=== PATIENT | female | born 1955 | race Caucasian/White ===

== ENCOUNTER → 2018-06-20 | Outpatient (CLI) | payer BC ==
[~2018-06-20] MED LIST: CRESTOR20 MG PO; LISINOPRIL20 MG PO; NORCO 5-325 TA1 EACH PO; PLAVIX 75 MG TA75 M1 PO
--- NOTE | 2018-06-28 16:38 | PAINCON ---
[address] [address] PAIN MANAGEMENT CONSULTATION Name: JACQUIE BAGLEY Room: [facility] EliudNayla#: [id number] Admission: 06/20/18 Attend Phys: Benito Kennedy MD Discharge: Date of : 57 Report #: [id number] THIS REPORT FOR: //name// CC: Herber Kennedy DATE OF SERVICE: 06/20/2018 CHIEF COMPLAINT: Pain in the anterior thigh areas. HISTORY OF PRESENT ILLNESS: The patient is a 63-year-old female who has been referred to the pain clinic. The patient states that she has been having pain and discomfort in the anterior thigh, left and right side. She has a history of vascular problems. She has had peripheral vascular disease and has undergone a right carotid endarterectomy because of the problem. She has had some problems with her lower extremity. She has been seen by vascular surgeon and has had surgery on a number of occasions in the groin areas. As a result of surgery, she has been told by her surgeon that she probably has suffered some nerve damage. Rates her pain as an 8/10. Notes pain and discomfort in the anterior thigh, particularly on the left as well as some on the right. At the end of the day note some pain that radiates down into the front portion of her leg. States that she does not have problems with her back, but has vascular insufficiency. This improved after the surgery, but the result in nerve damage remains. ALLERGIES: No known drug allergies. CURRENT MEDICATIONS: Rosuvastatin 20 mg, lisinopril 20 mg, Plavix 75 mg, hydrocodone 5/325 b.i.d. PAST MEDICAL HISTORY: 1. Peripheral vascular disease, status post right carotid endarterectomy for peripheral artery disease, lower extremity. 2. Hypertension. 3. Hypercholesterolemia. 4. History of hepatitis C. 5. Right TIA. 6. Vascular surgery with stents in the groin and aorta in 05/2017. PAST SURGICAL HISTORY: 1. Hysterectomy in 1987. 2. Carotid endarterectomy in 2010. SOCIAL HISTORY: She works with insurance. She is working at this juncture. REVIEW OF SYSTEMS: Joint pain, easy bleeding. Otherwise, [place] [address] PAIN MANAGEMENT CONSULTATION Name: KEVYNJACQUIE R Room: [facility]#: [id number] Admission: 06/20/18 Attend Phys: Benito Kennedy MD Discharge: Date of : 57 Report #: [id number] LABORATORY DATA: MRI of the lumbar spine dated on 04/27/2018: 1. L3-L4 mild disk height loss, mild disk bulge, mild facet hypertrophy. Very mild left neural foraminal stenosis. Right neural foramen patent. No spinal canal stenosis. 2. L4-L5, minimal lateral bulging disk annulus. Mild facet osteophytes. Very mild neural foraminal stenosis. No spinal stenosis. 3. L5-S1 mild posterior disk height loss, no disk bulge or protrusion. Mild facet osteophytes. No spinal canal or neural foraminal stenosis of the facets. PAIN CLINIC ASSESSMENT/PQRS: 1. History of osteoarthritis. The patient has not been treated for osteoarthritis or rheumatoid arthritis. 2. Height 5 feet 1 inch, weight 105 pounds, BMI is 20. 3. Vital signs: Blood pressure 139/91, heart rate 65, respiratory rate 16, room air saturation 97%, temperature 98.3. 4. Pain in intensity score 3/10. 5. Fall history: The patient has not fallen in the last 3 months. 6. Blood thinner. The patient is on Plavix, has a history of transient ischemic attack. 7. History of hypertension. The patient is being treated for hypertension. 8. Opioid greater than 6 weeks. The patient is receiving opioid medications through her primary physician for about 6 weeks. 9. Risk assessment tool, low for opioid use. 10. Functional assessment tool . 11. Recreational drug use. The patient denies use of recreational drugs. 12. Tobacco: The patient denies use of tobacco. 13. Alcohol: The patient denies use of alcoholic beverages. PHYSICAL EXAMINATION: GENERAL: The patient is a very petite white female, appears her stated age. She is alert and oriented x3. Affect is appropriate. Speech is fluent. HEAD, EYES, EARS, NOSE, AND THROAT: Normocephalic, atraumatic. Extraocular eye muscles intact. Sclerae nonicteric. Mucous membranes are moist. NECK: Without adenopathy or JVD. The patient has a well-healed scar on the right side, status post carotid endarterectomy. Upper extremity muscle strength is judged to be 5/5 for the major muscle groups in the upper extremity. Muscle strength is judged to be 5/5 for the major muscle groups. HEART: Regular rate without murmurs or rales. LUNGS: Clear to auscultation. ABDOMEN: Nontender. EXTREMITIES: Lower extremity muscle strength is judged to be 5/5 for the major muscle groups. The patient is able to walk on her heels. She would walk on her toes. Forward bending to touch her toes, not problematic. Left and right lateral bending, left and right lateral rotation are unremarkable. Anterior and posterior spring tests are negative. Ben signs are negative. Straight leg raises are negative. The patient has some pain and discomfort, which she [facility] [address] [place] [address] PAIN MANAGEMENT CONSULTATION Name: KEVYNJACQUIE R Room: [facility]#: [id number] Admission: 06/20/18 Attend Phys: Benito Kennedy MD Discharge: Date of : 57 Report #: [id number] describes in the right anterior portion of her thigh and approximately L2-L3 dermatomal distribution. This involves the right side as well. There is no clubbing, cyanosis or edema in the lower extremity. IMPRESSION: Chronic pain in the anterior thigh area, status post vascular surgery with probable injury to the nerves after history of vascular surgeries. RECOMMENDATION: The patient states she is taking the gabapentin medication. This made her feel a little bit "yucky." She has also taken tramadol and found this medication caused her ears to pop as well as feel "yucky." She feels that the hydrocodone medication is helpful. She is able to perform activities of daily living without significant impact on her life. We have given her the option to try amitriptyline which can sometimes be helpful with pain, which is of a nerve origin. We have also given her the possibility of trying Gralise, which is a slow release gabapentin type medication, which sometimes when gabapentin is problematic is much better tolerated. She declines that medication at this time. Possibility of Lyrica in the future possibility as well. The patient states that she likes to take the least amount of medication as possible. She would like to continue with the hydrocodone as needed. Usually takes one to two tablets per day. A script for these medications have been written. We would like to thank you for letting us to participate in her care. We hope she continues to improve. <ELECTRONICALLY SIGNED> By: Benito Kennedy MD 06/28/18 1638 [id number]. Jeffrey Kennedy MD /[facility]
== END ==
LOC: M.PC 08:11
DX: M79.651 Pain in right thigh (principal); M79.652 Pain in left thigh; G89.29 Other chronic pain; Z98.62 Peripheral vascular angioplasty status

== ENCOUNTER → 2018-09-07 | Outpatient (CLI) | payer BC ==
--- NOTE | ~2018-09-07 | PAINCON ---
[address] [address] PAIN MANAGEMENT CONSULTATION Name: JACQUIE BAGLEY Room: [facility].#: [id number] Admission: Attend Phys: Benito Kennedy MD Discharge: Date of : 57 Report #: [id number] THIS REPORT FOR: //name// CC: Herber Kennedy DATE OF SERVICE: 09/07/2018 HISTORY: The patient is a 63-year-old female who has been followed in the Pain Clinic. She suffers from anterior thigh and discomfort in the left and right side. She has a history of vascular problems. She has peripheral vascular disease. She has undergone a number of procedures including right carotid endarterectomy. Continues to have some problems with her vascularity. Notes that prolonged sitting, which she feels somewhat decreased in his blood flow can increase pain and discomfort she is experiencing in the groin area. She has been using hydrocodone 5/325 one p.o. daily. Oftentimes, she can "get away with 1-1/2 tablets per day." Notes that at the end of the day, she notes pain and discomfort. Prolonged sitting worsens the pain. Standing somewhat improves her discomfort. She continues to have "nerve damage since the surgeries in the groin area." ALLERGIES: No known drug allergies. CURRENT MEDICATIONS: Rosuvastatin 20 mg, lisinopril 20 mg, Plavix 75 mg, and hydrocodone 5/325 one p.o. b.i.d. PAIN CLINIC ASSESSMENT/PQRS: 1. The patient is not being treated for osteoarthritis or rheumatoid arthritis. 2. Height 5 feet 1 inch, weight 109 pounds, BMI is 21. 3. Vital signs: Blood pressure 140/86, heart rate 78, respiratory rate 16, room air saturation is 98%, and temperature 97.8. 4. Pain score 5-6/10. 5. The patient has not fallen in the last 3 months. 6. Blood thinner. The patient is not on a blood thinning medication. 7. Hypertension. The patient is being treated for hypertension. 8. Opioids greater than 6 weeks. The patient is receiving opioid medication from one source, the Pain Clinic. 9. Risk assessment tool, low for opioid use. 10. Functional assessment tool . 11. Recreational drug use. The patient denies use of recreational drugs. 12. Tobacco: The patient denies use of tobacco. 13. Alcohol: The patient denies use of alcoholic beverages. PHYSICAL EXAMINATION: GENERAL: The patient is a well-developed, well-n[place] [address] PAIN MANAGEMENT CONSULTATION Name: JACQUIE BAGLEY Room: [facility]#: [id number] Admission: Attend Phys: Benito Kennedy MD Discharge: Date of : 57 Report #: [id number] her stated age. She is alert and oriented x 3. Affect is appropriate. Speech is fluent. HEENT: Normocephalic, atraumatic. Extraocular eye muscles intact. Sclerae nonicteric. Mucous membranes are moist. NECK: Without adenopathy or JVD. The patient is status post right carotid endarterectomy. LUNGS: Clear to auscultation. ABDOMEN: Nontender. Bowel sounds present. EXTREMITIES: Lower extremity muscle strength is judged to be 5/5 for the major muscle groups in the upper extremity. Upper extremity muscle strength 5/5 in the major muscle groups in the upper extremity. The patient without significant scoliosis, kyphosis or lordosis. Notes that when she sits and leans forward this can cause worsening of pain after prolonged sitting. Notes that this improves when the patient stands up. She feels that this is secondary to increased blood flow down into her leg areas. IMPRESSION: 1. Chronic pain in the anterior - status post peripheral vascular disease. 2. Some constituents of neurovascular discomfort in the anterior portion of her thigh. RECOMMENDATIONS: We discussed treatment options with the patient. The patient will continue with hydrocodone 5/325 one p.o. b.i.d. She finds this is helpful. Takes one in the morning and one in the afternoon and evening when she gets home. Hope that enables her to have a more comfortable lifestyle. Has had no complication from the medications. She is aware that opioid medications can be problematic. We saw her initially in June. She called to get an appointment in [place] at [facility]. Unfortunately, we were closed for a week or two. She was unable to get the medication. Continue to have pain and discomfort and followed up with her doctor, Dr. Marino. States that he gave her 30 tablets. She has returned today for renewal of her medications. A script for her medications has been written. She will follow up in the future as needed. We would like to thank you for letting us participate in her care. We hope she continues to improve. By: [id number]. Jeffrey Kennedy MD /kris
== END ==
LOC: M.PC 09:10
DX: M79.651 Pain in right thigh (principal); M79.652 Pain in left thigh; G89.29 Other chronic pain; I73.9 Peripheral vascular disease, unspecified

== ENCOUNTER → 2018-10-05 | Outpatient (CLI) | payer BC ==
--- NOTE | ~2018-10-05 | PAINCON ---
[address] [address] PAIN MANAGEMENT CONSULTATION Name: KEVYNJACQUIE R Room: [facility]#: [id number] Admission: 10/05/18 Attend Phys: Benito Kennedy MD Discharge: Date of : 57 Report #: [id number] THIS REPORT FOR: //name// CC: Herber Kennedy DATE OF SERVICE: 10/05/2018 CHIEF COMPLAINT: Here for medication renewal. HISTORY: The patient is a 63-year-old female who has been followed in the pain clinic because of chronic pain. She suffers from peripheral vascular disease. She has undergone a number of surgeries. They include the carotid area as well as Vascular Surgery in the groin areas. Notes that she continues to have pain in the groin and in the top of her legs. Pain is worse with activity. Left side is more problematic than the right. Pain can be exacerbated by sitting. Rates her pain as a 5-6/10. Feels that her medications of [place] are helpful. She has been told that she has some nerve damage associated with her surgeries, which she has had in the groin area. ALLERGIES: No known drug allergies. MEDICATIONS: Rosuvastatin 20 mg, lisinopril 20 mg, Plavix 75 mg, hydrocodone 5/325 1 p.o. b.i.d. PAIN CLINIC ASSESSMENT AND PQRS: 1. The patient is not being treated for osteoarthritis or rheumatoid arthritis. 2. Height 5 feet 1 inch, weight 109 pounds, BMI is 20.9. 3. Vital signs: Blood pressure 135/88, heart rate 69, respiratory rate 16, room air saturation 99%, and temperature 97.6. 4. Pain intensity 5-6/10. 5. Fall history: The patient has not fallen in the last 3 months. 6. Blood thinner. The patient is not on a blood thinning medication, but she is on Plavix. 7. Hypertension. The patient is being treated for hypertension. 8. Opioids greater than 6 weeks. The patient has received her medication from one source, the pain clinic. 9. Risk assessment tool, low for opioid use. 10. Functional assessment tool . 11. Recreational drug use. The patient denies use of recreational drugs. 12. Tobacco: The patient denies use of tobacco. 13. Alcohol: The patient denies alcoholic beverages. PHYSICAL EXAMINATION: GENERAL: The patient is a well-developed, well-nourished white female[place] [address] PAIN MANAGEMENT CONSULTATION Name: JACQUIE BAGLEY Room: [facility]#: [id number] Admission: 10/05/18 Attend Phys: Benito Kennedy MD Discharge: Date of : 57 Report #: [id number] HEENT: Normocephalic, atraumatic. Extraocular eye muscles intact. Sclerae nonicteric. Mucous membranes are moist. NECK: Without adenopathy or JVD. The patient is status post right carotid endarterectomy. LUNGS: Clear to auscultation without rhonchi or rales. ABDOMEN: Nontender. Bowel sounds present. EXTREMITIES: Upper extremity muscle strength is judged to be 5/5 for the major muscle groups in the upper extremity. Lower extremity muscle strength generally 5-/5 for the lower extremity. The patient without significant scoliosis, kyphosis, or lordosis. Has pain and discomfort in the groin area. Forward leaning exacerbates and worsens her pain. Standing decreases the pain and discomfort. IMPRESSION: 1. Chronic pain in the anterior thigh area secondary to peripheral vascular disease. 2. Some discomfort in the neuro area as a result of past surgeries. RECOMMENDATIONS: We discussed treatment options with the patient. We will continue with her current medications. A script for her medications of hydrocodone have been rewritten. The patient will call us if she has any problems with her medications. Overall, she feels that things are going reasonably well. A script for the hydrocodone has been written. She will continue with her Plavix. She will continue her activities as tolerated. We would like to thank you for letting us participate in her care. We hope she continues to improve. By: [id number]. Jeffrey Kennedy MD /nt
== END ==
LOC: M.PC 05:10
DX: I73.9 Peripheral vascular disease, unspecified (principal); G89.29 Other chronic pain; Z79.899 Other long term (current) drug therapy

== ENCOUNTER → 2018-11-02 | Outpatient (CLI) | payer BC ==
--- NOTE | ~2018-11-02 | PAINCON ---
[facility] [address] [place] [address] PAIN MANAGEMENT CONSULTATION Name: JACQUIE BAGLEY [id number] Admission: 11/02/18 Attend Phys: Benito Kennedy MD Discharge: Date of : 57 Report #: [id number] THIS REPORT FOR: //name// CC: Herber Kennedy DATE OF SERVICE: 11/02/2018 FOLLOWUP COMPLAINT: Here for medication renewal. FOLLOWUP HISTORY: The patient is a 63-year-old female. She has been referred to the pain clinic for evaluation of chronic pain involving her legs. She suffers from peripheral neuropathy. She has had a number of surgeries. She has had carotid surgery. She has had vascular surgery in her groin area. Continues to have pain and discomfort in her legs, particularly if she sits for too long. Less pain and discomfort when she is standing. Has returned today for renewal of her medications. Feels that the medications are working reasonably well. She has had no complications from their use. Rates her pain as a 4/10. Notes that since the cold weather has subsided, pain is less. She is hoping that it will continue to be less problematic in the spring. She finds that hydrocodone 5/325 one p.o. b.i.d. were efficacious and has returned for the renewal of this medication. She is taking it as prescribed. ALLERGIES: No known drug allergies. MEDICATIONS: Rosuvastatin 20 mg, lisinopril 20 mg, Plavix 75 mg, hydrocodone 5/325 one p.o. b.i.d. PAIN CLINIC ASSESSMENT AND PQRS: 1. The patient is not being treated for osteoarthritis or rheumatoid arthritis. 2. Height 5 feet 1 inch, weight 110 pounds, BMI is 20.8. 3. Vital signs: Blood pressure 135/79, heart rate 69, respiratory rate 16, room air saturation 97%. Temperature was 98.1. 4. Pain intensity 10. 5. Fall history: The patient has not fallen in the last 3 months. 6. Blood thinner. The patient is not on a blood thinning medication. She is taking Plavix. 7. Hypertension. The patient is being treated for hypertension. 8. Opioids greater than 6 weeks. The patient has received medication from one source, the pain clinic. 9. Risk assessment tool, low for opioid use. 10. Functional assessment tool . 11. Recreational drug use. The patient denies use of recreational drugs. 12. Tobacco: The patient denies use of tobacco. 13. Alcohol: The patient [place] [address] PAIN MANAGEMENT CONSULTATION Name: JACQUIE BAGLEY Room: [facility]#: [id number] Admission: 11/02/18 Attend Phys: Benito Kennedy MD Discharge: Date of : 57 Report #: [id number] PHYSICAL EXAMINATION: GENERAL: The patient is well-developed, well-nourished white female. Appeared small in stature. HEENT: Normocephalic, atraumatic. Extraocular eye muscles intact. Sclerae nonicteric. Mucous membranes are moist. NECK: Without adenopathy or JVD. LUNGS: Clear to auscultation without rhonchi or rales. ABDOMEN: Nontender. Bowel sounds present. EXTREMITIES: Upper extremity muscle strength judged to be 5/5 for the major muscle groups in the upper extremity. Lower extremity 5-/5 for the major muscle groups in the lower extremity. The patient is without scoliosis, kyphosis or lordosis. The patient has pain and discomfort in the groin areas. Notes that forward leaning exacerbates her pain. Decreases blood flow and causes more discomfort. IMPRESSION: 1. Chronic pain in the thigh area, status post peripheral vascular surgery. 2. Peripheral vascular disease. RECOMMENDATIONS: We discussed treatment options with the patient. Overall, she feels that things are going reasonably well. We will continue with her medications. A script for renewal of her medication of hydrocodone 5/325 one p.o. b.i.d. has been written. She will call us if she has any concerns. We would like to thank you for letting us participate in her care. We hope she continues to improve. By: [id number]. Jeffrey Kennedy MD /EREN
== END ==
LOC: M.PC 04:46
DX: M79.651 Pain in right thigh (principal); M79.652 Pain in left thigh; I73.9 Peripheral vascular disease, unspecified; Z79.899 Other long term (current) drug therapy

== ENCOUNTER → 2018-11-30 | Outpatient (CLI) | payer OTHER ==
[~2018-11-30] MED LIST changes: +ASPIR 8181 MG PO
--- NOTE | 2018-12-01 13:10 | PAINCON ---
[address] [address] PAIN MANAGEMENT CONSULTATION Name: JACQUIE BAGLEY Room: [facility].#: [id number] Admission: 11/30/18 Attend Phys: Benito Kennedy MD Discharge: Date of : 57 Report #: [id number] THIS REPORT FOR: //name// CC: Herber Kennedy DATE OF SERVICE: 11/30/2018 CHIEF COMPLAINT: Chronic leg pain. HISTORY: The patient is a 63-year-old female who has been followed in the pain clinic because of chronic pain. As you recall, she has had some problems with peripheral artery disease. She has had surgery in the area of the groin left and right. Because of the significance of the stenotic area in her right leg. The left iliac was shunted to the right side. Continues to have pain and discomfort. Sitting which caused a bending and restriction of blood flow causes more pain and discomfort. She has less pain and discomfort when she is standing. She has been told that she has some nerve damage. Still has some pain and discomfort in her right as well as the left leg. The right leg has been more problematic. States that she had recent followup with her vascular surgeon, was told that the vasculature and blood flow on the right side was reasonably good. She feels that her medications of hydrocodone are helpful. Has some blockage still in her legs. Rates her pain score is a 10/22/2018. Hydrocodone medication is quite helpful. Note activity, cold, walking, sitting, standing can be problematic. The rest is beneficial. Has stopped taking her blood thinning medication. States that this medication made her feel a little bit dizzy. When she turns her head noted some feelings of instability. Since she has stopped taking the medication, she feels that things have stabilized. ALLERGIES: No known drug allergies. CURRENT MEDICATIONS: Rosuvastatin 20 mg, lisinopril 20 mg, Plavix 75 mg was used in the past, hydrocodone 5/325. The patient has stopped taking the Plavix. Does continue with aspirin 81 mg daily. PAIN CLINIC ASSESSMENT/PQRS: 1. The patient is not being treated for osteoarthritis or rheumatoid arthritis. 2. Height 5 feet 1 inch, weight 109 pounds, BMI is 20, respiratory rate 16, room air saturation is 97%, blood pressure 142/96, and temperature 97.8. 3. Pain intensity 10/22. 4. Fall history: The patient has not fallen in the last 3 months. 5. Blood thinner. The patient is not on blood thinning medication. 6. Hypertension. The patient is being treated for hypertension. 7. Opiates greater than 6 weeks. The patient is taking medication from [facility]. 8. Risk assessment too [place] [address] PAIN MANAGEMENT CONSULTATION Name: JACQUIE BAGLEY Room: [facility]#: [id number] Admission: 11/30/18 Attend Phys: Benito Kennedy MD Discharge: Date of : 57 Report #: [id number] 9. Functional assessment . 10. Recreational drug use. The patient denies use of recreational drugs. 11. Tobacco: The patient smoked from age 17 to about age 41. Does not smoke at this juncture. 11. Alcohol: The patient denies use of alcoholic beverages. PHYSICAL EXAMINATION: GENERAL: The patient is a well-developed, well-nourished white female. Appears of her appears her stated age. She is small in stature. HEENT: Normocephalic, atraumatic. Extraocular eye muscles intact. Sclerae nonicteric. Mucous membranes are moist. NECK: Without adenopathy or JVD. ABDOMEN: Nontender. EXTREMITIES: Upper extremity muscle strain judged to be 5/5 for the major muscle groups in the upper extremity. Lower extremity muscle strength 5-/5 for the major muscle than lower extremity. Has some pain and discomfort in the anterior portion of her leg on the right side and some in the left side as well. The patient is without scoliosis, kyphosis or lordosis. Has some discomfort in the groin areas. Forward leaning causes exacerbation of her pain and this is probably secondary to decreased blood flow. IMPRESSION: 1. Chronic pain in the thighs, status post peripheral vascular disease. 2. Hypertension. 3. Peripheral vascular disease. RECOMMENDATIONS: We discussed treatment options with the patient. At this juncture, we will continue with her medications of hydrocodone 5/1 p.o. b.i.d. The patient will continue to take her medications. She will call us if she has any concerns. Overall, she feels that things are going reasonably well. She is somewhat satisfied that her vascular stability remains intact. Script for her medications of hydrocodone 5/325 one p.o. b.i.d. has been rewritten. <ELECTRONICALLY SIGNED> By: Benito Kennedy MD 12/01/18 1310 0920 [id number]. Jeffrey Kennedy MD /nt
== END ==
LOC: M.PC 05:12
DX: G89.29 Other chronic pain (principal); M79.652 Pain in left thigh; M79.651 Pain in right thigh; I10 Essential (primary) hypertension; I73.9 Peripheral vascular disease, unspecified; Z79.899 Other long term (current) drug therapy; Z79.82 Long term (current) use of aspirin; Z79.891 Long term (current) use of opiate analgesic; Z87.891 Personal history of nicotine dependence

== ENCOUNTER → 2018-12-28 | Outpatient (CLI) | payer OTHER ==
--- NOTE | 2019-01-11 01:32 | PAINCON ---
[address] [address] PAIN MANAGEMENT CONSULTATION Name: KEVYNJACQUIE CRANE Room: [facility].#: [id number] Admission: 12/28/18 Attend Phys: Benito Kennedy MD Discharge: Date of : 57 Report #: [id number] THIS REPORT FOR: //name// CC: Herber Kennedy DATE OF SERVICE: 12/28/2018 CHIEF COMPLAINT: Here for medication renewal and chronic leg pain. HISTORY: The patient is a 63-year-old female who has been followed in the pain clinic. As you may recall, she has peripheral vascular disease. Does have pain and discomfort in the groin area. He has had vascular compromise. She has undergone iliac shots from the left to the right side. Continues to have some pain and discomfort. This pain can be more problematic when she sits. This causes an embarrassment flow to the lower extremities. She feels that use of her medications at this juncture are helpful. She finds hydrocodone reasonably effective. She has noticed an increase in her pain due to lots of walking. She did go to [place]. During that week, she noticed more discomfort because of the walking. Has had some increased pain in her low back area and has had the bilateral groin discomfort. Rates it as 3/10. Has found that the hydrocodone medication continues to be helpful. Notes that walking, sitting, standing can be more problematic. Notes that rest and use of her medications are beneficial and she would like to have her medications renewed. She has had no complications with the medications so far. ALLERGIES: No known drug allergies. CURRENT MEDICATIONS: Rosuvastatin 20 mg, lisinopril 20 mg, Plavix 75 mg as it has been used in the past, but the patient has stopped this medication. Hydrocodone 5/325 b.i.d., aspirin 81 mg daily. PAIN CLINIC ASSESSMENT AND PQRS: 1. The patient is not being treated for osteoarthritis or rheumatoid arthritis. 2. Height 5 feet 1 inch, weight is 110 pounds, BMI is 21. 3. Vital signs: Blood pressure 114/82, heart rate 70, respiratory rate 16, room air saturation 97%, temperature 98.1. 4. Pain intensity 3-4/10. 5. Fall history: The patient has not fallen in the last 3 months. 6. Blood thinner: The patient is not on a blood thinning medication. 7. Hypertension. The patient is being treated for hypertension. 8. Opioids greater than 6 weeks. The patient is not taking medications except for that which she received from the pain clinic. 9. Risk assessment tool, low for opioid use. 10. Functional assessment tool . 11. Recreational drug use. The patient [place] [address] PAIN MANAGEMENT CONSULTATION Name: JACQUIE BAGLEY [facility]#: [id number] Admission: 12/28/18 Attend Phys: Benito Kennedy MD Discharge: Date of : 57 Report #: [id number] 12. Tobacco: The patient has smoked in the past. Smoked from age 17 to age 41. Does not smoke at this juncture. 13. Alcohol: The patient denies use of alcoholic beverages. PHYSICAL EXAMINATION: GENERAL: The patient is a well-developed, well-nourished white female. Appears her stated age. She is small in stature. HEENT: Normocephalic, atraumatic. Extraocular eye muscles intact. Sclerae nonicteric. Mucous membranes are moist. NECK: Without adenopathy or JVD. ABDOMEN: Nontender. Bowel sounds present. EXTREMITIES: Upper extremity muscle strength is judged to be 5-/5 for the major muscle groups in the upper extremity. Lower extremity muscle strength 5-/5 for the major muscle groups in lower extremity. The patient has some discomfort in anterior portion of her leg as well as down in the right side. The patient is without scoliosis, kyphosis, or lordosis. Some discomfort in the area of the groins. Forward leaning cause some exacerbation of her pain most likely secondary to decreased blood flow. IMPRESSION: 1. Chronic pain in the thighs, status post peripheral vascular disease. 2. Hypertension. 3. Peripheral vascular disease. RECOMMENDATIONS: We discussed treatment options with the patient. At this juncture, she feels her medications are working reasonably well. We will continue with her medications. She is aware that opioid medications can be helpful that they can lose their effectiveness over time secondary to development of tolerance. She feels medications are helpful. She would like to continue with their use. She is using 5 mg 1 p.o. b.i.d. A script for her medication has been written. She will call us if she has any concerns. We would like to thank you for letting us participate in her care. We hope she continues to improve. <ELECTRONICALLY SIGNED> By: Benito Kennedy MD 01/11/19 0132 [id number]. Jeffrey Kennedy MD /nt
== END ==
LOC: M.PC 04:58
DX: M79.651 Pain in right thigh (principal); M79.652 Pain in left thigh; G89.29 Other chronic pain; I10 Essential (primary) hypertension; I73.9 Peripheral vascular disease, unspecified; Z79.899 Other long term (current) drug therapy

== ENCOUNTER → 2019-01-18 | Outpatient (CLI) | payer OTHER ==
[~2019-01-18] MED LIST changes: +HYDROCODON-ACE1 EAC7 PO
--- NOTE | ~2019-01-18 | PAINCON ---
[address] [address] PAIN MANAGEMENT CONSULTATION Name: JACQUIE BAGLEY Room: [facility].#: [id number] Admission: 01/18/19 Attend Phys: Benito Kennedy MD Discharge: Date of : 57 Report #: [id number] THIS REPORT FOR: //name// CC: Herber Kennedy DATE OF SERVICE: 01/18/2019 CHIEF COMPLAINT: Pain in the legs. HISTORY: The patient is a 63-year-old female who has been followed in the pain clinic because of peripheral neuropathy she has leg pain. She has undergone surgeries in the groin area. There is compromised of the vascular flow in these areas. Notes that if she this can decrease the flow that causes increased pain and discomfort. She finds that use of hydrocodone has been effective in improving her level of comfort. She is taking her medications as prescribed. She is having no complications with them. She rates her pain as a 4/10 today. She has used CBD oil. She feels that medication may be improving some of her pain and discomfort. She rates her about 50% improved with her current medical regimen. Notes that cold temperatures, walking, sitting, and standing can exacerbate her discomfort. Rest and use of medications, is helpful. She is having no complications with her medications. She would like to continue their use and return to the pain clinic for renewal. ALLERGIES: No known drug allergies. CURRENT MEDICATIONS: Rosuvastatin 20 mg, lisinopril 20 mg, Plavix 75 mg. The patient stopped using Plavix. Hydrocodone 5/325 one p.o. b.i.d., aspirin 81 mg. PAIN CLINIC ASSESSMENT/PQRS: 1. The patient is not being treated for osteoarthritis or rheumatoid arthritis. 2. Height 5 feet 1 inch, weight 110 pounds, BMI is 20.9. 3. Vital signs: Blood pressure 159/95, heart rate 72, respiratory rate 16, room air saturation 99%, temperature 97.8. 4. Pain intensity: 4/10. 5. Fall history: The patient has not fallen in the last 3 months. 6. Blood thinner. The patient is not on a blood thinning medication. 7. Hypertension. The patient is being treated for hypertension. 8. Opioids greater than 6 weeks. The patient receives her medications from 1 source the pain clinic. 9. Risk assessment tool, low for opioid use. 10. Functional assessment tool . 11. Recreational drug use. The patient denies use of recreational drugs. 12. Tobacco: The patient has smoked in the past and smokes from age 17 to age 41. She is [place] [address] PAIN MANAGEMENT CONSULTATION Name: JACQUIE BAGLEY Room: [facility]#: [id number] Admission: 01/18/19 Attend Phys: Benito Kennedy MD Discharge: Date of : 57 Report #: [id number] 13. Alcohol: The patient denies use of alcoholic beverages. PHYSICAL EXAMINATION: GENERAL: The patient is a well-developed, well-nourished white female. Appears her stated age. She is alert and oriented x 3. Affect is appropriate. Speech is fluent. HEENT: Normocephalic, atraumatic. Extraocular eye muscles intact. Sclerae nonicteric. Mucous membranes are moist. NECK: Without adenopathy or JVD. ABDOMEN: Nontender. Bowel sounds present. EXTREMITIES: Upper extremity muscle strength is judged to be 5-/5 for the major muscle groups in the upper extremity. Lower extremity muscle strength 5-/5 for the major muscle groups in the lower extremity. The patient has some discomfort when she sits. This causes some of the stents. The patient is without lordosis call us lordosis, kyphosis, or scoliosis. IMPRESSION: 1. Pain in the thighs, status post peripheral vascular disease. 2. Hypertension. 3. Peripheral vascular disease. RECOMMENDATIONS: We discussed treatment options with the patient. At this juncture, we will continue with hydrocodone. She finds this medication is helpful. She does not have any problems. She is aware that opioid medications can be problematic. We discussed the problems with opioid medications. Some the patients can develop dependence on these medications. The patient does not have any sign and dependency. We also discussed the possibility of development of tolerance. At that rate, the patient will get less benefit from the medication and require a higher dose. She is at a very low dose. We will continue with her medications. Hopefully, she is able to maintain her level of activity. She is able to stay gainfully employed. She will call us if she has any concerns. We would like to thank you for letting us participate in her care. We hope she continues to improve. By: [id number]. Jeffrey Kennedy MD /EREN
== END ==
LOC: M.PC 05:32
DX: I73.9 Peripheral vascular disease, unspecified (principal); G62.9 Polyneuropathy, unspecified; I10 Essential (primary) hypertension; M79.661 Pain in right lower leg; M79.662 Pain in left lower leg; Z79.82 Long term (current) use of aspirin; Z79.899 Other long term (current) drug therapy

== ENCOUNTER → 2019-02-22 | Outpatient (CLI) | payer OTHER ==
--- NOTE | ~2019-02-22 | PAINCON ---
[address] [address] PAIN MANAGEMENT CONSULTATION Name: JACQUIE BAGLEY [id number] Admission: 02/22/19 Attend Phys: Benito Kennedy MD Discharge: Date of : 57 Report #: [id number] THIS REPORT FOR: //name// CC: Herber Kennedy DATE OF SERVICE: 02/22/2019 CHIEF COMPLAINT: Chronic leg pain. HISTORY: The patient is a 64-year-old female who has been followed in the pain clinic. Cause of peripheral neuropathy. She continues to have pain. She has undergone surgeries for vascular insufficiency. Because of the surgeries she has had increasing pain in the legs. Notes that when she is sitting, the legs are fit, but she has more increasing pain. Standing is less problematic. She finds that use of hydrocodone has been efficacious. She is having no complications with that. Feels that her pain improves with the use of the medication. She feels that her pain is worse in the evening. Notes activity, walking, sitting, standing can precipitate more discomfort, has had no complication with her medications. She feels that her pain is about 50% improved with use of medications. She has returned today with hopes of renewing her medicines. She is taking as prescribed. She is having no real complications. ALLERGIES: No known drug allergies. CURRENT MEDICATIONS: Rosuvastatin 20 mg, lisinopril 20 mg, Plavix 75 mg. The patient has stopped taking this medication. Hydrocodone 5/325 one p.o. b.i.d., aspirin 81 mg. PAIN CLINIC ASSESSMENT/PQRS: 1. The patient is not being treated for osteoarthritis or rheumatoid arthritis. 2. Height 5 feet 1 inch, weight 110 pounds, BMI is 20, room air saturation is 98%, temperature 98.4, blood pressure 120/69, heart rate 58. 3. Pain intensity 2/10. 4. Fall history: The patient has not fallen in the last 3 months. 5. Low Blood thinner. The patient is not on a blood thinning medication. 6. Hypertension. The patient is being treated for hypertension. 7. Opioids greater than 6 weeks. The patient receives medications from one source, the pain clinic. 8. Risk assessment tool for opioid use. 9. Functional assessment tool . 10. Recreational drug use. The patient denies. 11. Recreational drugs. The patient is not using recreational drugs. 12. Tobacco: The patient has smoked in the past and has smoked from age 6. She has stopped smoking and does not [place] [address] PAIN MANAGEMENT CONSULTATION Name: JACQUIE BAGLEY Room: [facility]#: [id number] Admission: 02/22/19 Attend Phys: Benito Kennedy MD Discharge: Date of : 57 Report #: [id number] 13. Alcohol: The patient denies use of alcoholic beverages. PHYSICAL EXAMINATION: GENERAL: The patient is a well-developed, well-nourished white female. Appears her stated age. She is alert and oriented x 3. Her affect is appropriate. Speech is slow. HEAD, EYES, EARS, NOSE, AND THROAT: Normocephalic, atraumatic. Extraocular eye muscles intact. NECK: Without adenopathy or JVD. ABDOMEN: Nontender. Bowel sounds present. EXTREMITIES: Upper extremity muscle strength is judged to be 5/5 for the major muscle groups in the upper extremity. Lower extremity strength is 5/5. The patient notes some increased pain and discomfort if she sits for a prolonged period of time. The patient is without significant lordosis, kyphosis or scoliosis. IMPRESSION: 1. Chronic pain secondary to peripheral vascular disease. 2. Hypertension. RECOMMENDATIONS: We discussed treatment options with the patient. At this juncture, she feels her medications are helpful. She does not have any problems with them. We had a discussion regarding use of opioids. They can be helpful initially. This may become less effective because of development of tolerance. The patient is also aware that some patients have problems with the medication and can developed dependency. She feels like she is having problems with it. She is active. She does drive quite a bit. Yesterday, she drove from [place] and has noted some increased pain, particularly when she is sitting. She will follow up in the near future. We would like to thank you for letting us to participate in her care. A script for her medications of hydrocodone 5 one p.o. b.i.d. has been written. By: [id number]. Jeffrey Kennedy MD /EREN
== END ==
LOC: M.PC 05:11
DX: I73.9 Peripheral vascular disease, unspecified (principal); G89.29 Other chronic pain; I10 Essential (primary) hypertension; Z79.899 Other long term (current) drug therapy; Z79.891 Long term (current) use of opiate analgesic; Z87.891 Personal history of nicotine dependence

== ENCOUNTER → 2019-03-20 | Outpatient (CLI) | payer OTHER | LOC: M.PC 05:01 | DX: I73.9 Peripheral vascular disease, unspecified (principal); I10 Essential (primary) hypertension; E78.00 Pure hypercholesterolemia, unspecified; Z79.899 Other long term (current) drug therapy ==

== ENCOUNTER → 2019-04-19 | Outpatient (CLI) | payer OTHER ==
--- NOTE | 2019-04-23 11:25 | PAINCON ---
[facility] [address] [place] [address] PAIN MANAGEMENT CONSULTATION Name: JACQUIE BAGLEY [id number] Admission: 04/19/19 Attend Phys: Benito Kennedy MD Discharge: Date of : 57 Report #: [id number] THIS REPORT FOR: //name// CC: Herber Kennedy DATE OF SERVICE: 04/19/2019 FOLLOWUP HISTORY: The patient is a 64-year-old female who has been followed in the pain clinic. She has chronic pain involving her back and lower legs. She does have peripheral vascular disease. She has had vascular surgery in both the left and right leg with involvement of the iliacs. Overall, things are going reasonably well. She feels that her medications of hydrocodone enables her to have a more comfortable existence. She is taking the medication as prescribed. She has had no complications. She feels that the medication remains helpful and has some discomfort in the low back area as well. She has increased discomfort with cold temperatures, walking, sitting, standing, and medications and rest decrease her discomfort. ALLERGIES: No known drug allergies. CURRENT MEDICATIONS: Rosuvastatin 20 mg, lisinopril 20 mg, and Plavix. This was used in the past, but the patient is not taking it at this juncture. Hydrocodone 5/325 one p.o. b.i.d., and aspirin 81 mg. PAIN CLINIC ASSESSMENT AND PQRS: 1. The patient is not being treated for osteoarthritis or rheumatoid arthritis. 2. Height 5 feet 1 inch, weight 112 pounds, BMI is 20.9. 3. Vital signs: Blood pressure 134/83, heart rate 61, respiratory rate 16, room air saturation 95%, and temperature 97.5. 4. Pain intensity 1-2 out of 10. 5. Fall history: The patient has not fallen in the last 3 months. 6. Blood thinner. The patient is not on a blood thinning medication. 7. Plavix. The patient has used in the past, but is not using it now. 8. Hypertension. The patient is being treated for hypertension. 9. Opioids greater than 6 weeks. The patient received medication from one source the pain clinic. 10. Risk assessment tool, low for opioid use. 11. Functional assessment tool, . 12. Recreational drug use. The patient denies use of recreational drugs. 13. Tobacco: The patient smoked in the past. Smoked for about 10 years. She has not smoked, does not smoke at this juncture. 14. Alcohol. The patient denies use of alcoholic beverages. PHYSICAL EXAMINATION: GENERAL: The patient is a well-developed, well-[place] [address] PAIN MANAGEMENT CONSULTATION Name: JACQUIE BAGLEY Room: [facility]#: [id number] Admission: 04/19/19 Attend Phys: Benito Kennedy MD Discharge: Date of : 57 Report #: [id number] her stated age. She is alert and oriented x 3. Her affect is appropriate. Speech is fluent. HEENT: Normocephalic, atraumatic. Extraocular eye muscles intact. NECK: Without adenopathy or JVD. HEART: Regular rate. ABDOMEN: Nontender. EXTREMITIES: Upper extremity muscle strength judged to be 5/5 for the major muscle groups. Lower extremity muscle strength is judged to be 5/5 for the major muscle groups in the lower extremity. The patient is without significant scoliosis, kyphosis or lordosis. IMPRESSION: 1. Pain in the thighs - status post peripheral vascular surgeries. 2. Hypertension. 3. Peripheral vascular disease. 4. Hypercholesterolemia. RECOMMENDATIONS: We discussed treatment options with the patient. At this juncture, she feels that the hydrocodone medication is helpful. She is able to remain gainfully employed. She does quite a bit of traveling and finds this medication makes travelling more palatable. She is aware that opioid medications can become less effective over time due to tolerance. We have discussed that 70,000 people last year as a result of overdosing. The patient feels medications are working well. Keeps them in a guarded area. She would like to continue with the medication to help continue with her pain relief. We will continue with use of the opioid medications in a complex medical management situation to help control the pain. <ELECTRONICALLY SIGNED> By: Benito Kennedy MD 04/23/19 1125 0926 1222N. Jeffrey Kennedy MD /nt
== END ==
LOC: M.PC 04-17 08:50
DX: M79.652 Pain in left thigh (principal); M79.651 Pain in right thigh; I10 Essential (primary) hypertension; I73.9 Peripheral vascular disease, unspecified; E78.00 Pure hypercholesterolemia, unspecified

== ENCOUNTER → 2019-05-17 | Outpatient (CLI) | payer OTHER ==
[~2019-05-17] MED LIST changes: +multivitamin PO
--- NOTE | 2019-06-06 09:09 | PAINCON ---
[facility] [address] [place] [address] PAIN MANAGEMENT CONSULTATION Name: JACQUIE BAGLEY Room: [facility]#: [id number] Admission: 05/17/19 Attend Phys: Benito Kennedy MD Discharge: Date of : 57 Report #: [id number] THIS REPORT FOR: //name// CC: Herber Kennedy DATE OF SERVICE: 05/17/2019 CHIEF COMPLAINT: Here for medication renewal. HISTORY: The patient is a 64-year-old female who has been followed in the pain clinic. Continues to have pain and discomfort involving her lower legs. Notes some increased pain and discomfort over the last month. She has continued to stay active. Feels that the medications are beneficial and enable her to have a more comfortable life, doing activities of daily living. Continues to have pain that radiates down into the groin and into her legs bilaterally. She feels that it might have been worse over the last month because of the change in the weather pattern. She rates her pain as a 6/10 at this point. Notes that generally 50% improvement in her pain. Notes that walking, sitting and standing can be more problematic. ALLERGIES: No known drug allergies. CURRENT MEDICATIONS: Rosuvastatin 20 mg, lisinopril 20 mg, hydrocodone 5/325 one p.o. b.i.d., and aspirin 81 mg. PAIN CLINIC ASSESSMENT AND PQRS: 1. The patient is not being treated for osteoarthritis or rheumatoid arthritis. 2. Vital Signs: Height 5 feet 1 inch, weight 110 pounds, BMI is 20, respiratory rate is 16, blood pressure 142/84, heart rate 61, temperature 97.9, and saturation 97%. 3. Pain intensity 01/22. 4. Fall history: The patient has not fallen in the last 3 months. 5. Blood thinner. The patient is not on a blood thinning medication, Plavix has been used in the past, not now. 6. Hypertension. The patient is being treated for hypertension. 7. Opioids greater than 6 weeks. The patient receives medication from [facility]. 8. Risk assessment tool, low for opioid use. 9. Functional assessment tool . 10. Recreational drug use. The patient denies use of recreational drugs. 11. Tobacco: The patient smokes in the past. Has smoked for about the past 10 years. She is not smoking at this juncture. 12. Alcohol. The patient denies use of alcoholic beverages. PHYSICAL EXAMINATION: [address] [place] [address] PAIN MANAGEMENT CONSULTATION Name: JACQUIE BAGLEY Room: [facility]#: [id number] Admission: 05/17/19 Attend Phys: Benito Kennedy MD Discharge: Date of : 57 Report #: [id number] GENERAL: The patient is a well-developed, well-nourished white female. Appears her stated age. She is alert and oriented x 3. Her affect is appropriate. Speech is fluent. HEENT: Normocephalic, atraumatic. Extraocular eye muscles intact. Sclerae nonicteric. Mucous membranes are moist. NECK: Without adenopathy or JVD. HEART: Regular rate. ABDOMEN: Nontender. EXTREMITIES: Upper extremity muscle strength judged to be 5/5 for the major muscle groups in the upper extremity. Lower extremity, the patient has pain in the lower extremities into the groin as well as into her legs bilaterally. The patient without significant scoliosis, kyphosis or lordosis. IMPRESSION: 1. Pain in the thighs and down the legs bilaterally -- status post peripheral vascular surgeries. 2. Hypertension. 3. Peripheral vascular disease. 4. Hypercholesterolemia. RECOMMENDATIONS: We discussed treatment options with the patient. At this juncture, we will continue with her medications. She feels the medications have been helpful. She has noted over the last month that her pain has been less, well controlled. She would like to increase the opioid medication to see whether or not it would help control the pain better. We explained to the patient that opioid medications can be beneficial. They can be problematic in certain patients. She is not showing any signs of addiction. She has taken the medication as prescribed. We will increase her hydrocodone from 5 mg b.i.d. to 5 mg t.i.d. Hopefully, this will provide her with more pain and comfort. She is aware that opioids become less effective as a result of development of tolerance. She feels her pain medications have provided 50% improvement in her wellbeing. We would like to thank you for letting us participate in her care. We hope she continues to improve. <ELECTRONICALLY SIGNED> By: Benito Kennedy MD 06/06/19 0909 1122 1441N. Jeffrey Kennedy MD /kris
== END ==
LOC: M.PC 05:30
DX: M79.652 Pain in left thigh (principal); M79.651 Pain in right thigh; I10 Essential (primary) hypertension; I73.9 Peripheral vascular disease, unspecified; E78.00 Pure hypercholesterolemia, unspecified

== ENCOUNTER → 2019-06-14 | Outpatient (CLI) | payer OTHER ==
--- NOTE | 2019-06-25 13:25 | PAINCON ---
[facility] [address] [place] [address] PAIN MANAGEMENT CONSULTATION Name: KEVYNJACQUIE Terell Room: [facility]#: [id number] Admission: 06/14/19 Attend Phys: Benito Kennedy MD Discharge: Date of : 57 Report #: [id number] THIS REPORT FOR: //name// CC: SABRINA Kennedy DATE OF SERVICE: 06/14/2019 CHIEF COMPLAINT: Here for medications, things are going well. HISTORY: The patient is a 64-year-old female, who has been followed in the pain clinic. As you recall, she has pain involving her legs. She has peripheral vascular disease. She is following up next week for her annual vascular check. She slipped and fell about a week ago. Continues to have pain that radiates into her groin. Has bilateral leg pain. Rates her pain as a 4/10. She would like to continue with her medications. She feels that there is 50-60% improvement in her pain. ALLERGIES: No known drug allergies. CURRENT MEDICATIONS: Rosuvastatin 20 mg, lisinopril 20 mg, hydrocodone 5/325 one p.o. b.i.d., aspirin 81 mg. PAIN CLINIC ASSESSMENT AND PQRS: 1. The patient is not being treated for osteoarthritis or rheumatoid arthritis. 2. VITAL SIGNS: Blood pressure is 134/74, heart rate 57, respiratory rate 16, room air saturation is 97%, temperature of 98.2, height 5 feet 1 inch, weight 112 pounds, BMI is 21.2. 3. Pain intensity 4/10. 4. Fall history: The patient fell about 7 days ago, did not need medical attention. 5. Blood thinner. The patient is not on a blood thinning medication. 6. Hypertension. The patient is being treated for hypertension. 7. Opioids greater than 6 weeks. The patient received medication from one source of the pain clinic. 8. Risk assessment tool, low for opioid use. 9. Functional assessment tool . 10. Recreational drugs. The patient denies use of recreational drugs. 11. Tobacco: The patient has smoked in the past. Has not smoked in the last 10 years. 12. Alcohol. The patient denies use of alcoholic beverages. PHYSICAL EXAMINATION: GENERAL: The patient is a well-developed, well-nourished white female. Appears her stated age. She is alert and oriented x 3. [place] [address] PAIN MANAGEMENT CONSULTATION Name: JACQUIE BAGLEY Room: [facility]#: [id number] Admission: 06/14/19 Attend Phys: Benito Kennedy MD Discharge: Date of : 57 Report #: [id number] Speech is fluent. HEENT: Normocephalic, atraumatic. Extraocular eye muscles intact. Sclerae nonicteric. Mucous membranes are moist. NECK: Without adenopathy. HEART: Regular rate. ABDOMEN: Nontender. EXTREMITIES: Upper extremity muscle strength judged to be 5-/5 for the major muscle groups in the upper extremity. Lower extremity, the patient has some pain and to the groin area. Has pain in her legs bilaterally. Pain is more problematic when she sits for a while. The patient is without significant scoliosis, kyphosis or lordosis. IMPRESSION: 1. Pain in the thigh down into the legs bilaterally status post peripheral vascular surgeries. 2. Hypertension. 3. Peripheral vascular disease. 4. Hypercholesterolemia. RECOMMENDATIONS: We discussed treatment options with the patient. At this juncture, we will continue with her medications. She has taken the medication as prescribed. We have discussed the problems with opioid medications. They can be problematic in certain people. The patient has taken her medication as prescribed. Does not seem to have problems with these medications. She finds that they are beneficial. She feels that things are about 50-60% improved. She keeps her medications in a guarded area. We will continue with her medications. A script for hydrocodone 5/325 one p.o. 2-3 times a day have been provided. She will call us if she has any problems with her medications. We would like to thank you for letting us participate in her care. We hope she continues to improve. Thank you very much for letting us participate in her care. She has noticed some increased pain now as the days have gotten colder and the weather is changing. <ELECTRONICALLY SIGNED> By: Benito Kennedy MD 06/25/19 1325 [id number]. Jeffrey Kennedy MD /nt
== END ==
LOC: M.PC 04:58
DX: M79.652 Pain in left thigh (principal); M79.651 Pain in right thigh; I10 Essential (primary) hypertension; I73.9 Peripheral vascular disease, unspecified; E78.00 Pure hypercholesterolemia, unspecified

== ENCOUNTER 2019-07-03 17:52 | Inpatient (IN) | payer OTHER ==
[~2019-07-03] VITALS: Ht 154.9 cm; Wt 50.8 kg
[2019-07-03 17:56] VITALS: BP 178/105
[2019-07-03 18:10] LABS: ABSOLUTE EOSINOPHILS 0.1 thou/uL (0.0-0.7); ABSOLUTE LYMPHOCYTES 1.3 thou/uL (0.8-5.3); ABSOLUTE MONOCYTES 0.3 thou/uL (0.0-1.2); ABSOLUTE NEUTROPHILS 5.5 thou/uL (1.6-8.1); BASOPHILS 0.3 %; EOSINOPHILS 0.7 %; HEMATOCRIT 40.9 % (37.0-47.0); HEMOGLOBIN 14.2 gm/dL (12.0-15.0); LYMPHOCYTES 17.6 %; MCH 33.7 pg (26.0-34.0); MCHC 34.7 g/dL (28.0-37.0); MCV 97.2 fL (80.0-100.0); MONOCYTES 4.2 %; MPV 6.9 fl. (7.2-11.1); NUCLEATED RBCS 0 /100WBC; PLATELET COUNT* 216 thou/uL (150-400); POLYS 77.2 %; RBC 4.21 mil/uL (4.20-5.00); RDW-CV 12.5 % (10.5-14.5); WBC 7.2 thou/uL (4.0-11.0)
[2019-07-03 18:23] LABS: CALCIUM 9.2 mg/dL (8.5-10.1); CREATININE 0.8 mg/dL (0.6-1.3); POTASSIUM 3.9 mmol/L (3.5-5.1)
[2019-07-03 18:36] LABS: APTT 29.2 Seconds (25.0-31.3); PROTIME 10.3 Seconds (9.20-11.50)
[2019-07-03 18:37] LABS: ALBUMIN 4.2 g/dL (3.4-5.0); CK-MB MASS 1.6 ng/mL (<0.5-3.6); MAGNESIUM 1.8 mg/dL (1.8-2.4); TOTAL BILIRUBIN 0.4 mg/dL (<0.1-1.0); TOTAL PROTEIN 7.8 g/dL (6.4-8.2)
[2019-07-03 19:40] VITALS: BP 109/67
[2019-07-03 20:30] VITALS: BP 102/60
[2019-07-04] VITALS (7 sets, daily range): BP systolic 79–122; BP diastolic 38–77
[2019-07-04 05:44] LABS: ABSOLUTE LYMPHOCYTES 1.1 thou/uL (0.8-5.3); ABSOLUTE MONOCYTES 0.3 thou/uL (0.0-1.2); ABSOLUTE NEUTROPHILS 6.6 thou/uL (1.6-8.1); BASOPHILS 0.2 %; HEMATOCRIT 40.7 % (37.0-47.0); HEMOGLOBIN 13.8 gm/dL (12.0-15.0); LYMPHOCYTES 13.5 %; MCH 33.5 pg (26.0-34.0); MCHC 33.9 g/dL (28.0-37.0); MONOCYTES 3.6 %; MPV 7.8 fl. (7.2-11.1); NUCLEATED RBCS 0 /100WBC; PLATELET COUNT* 205 thou/uL (150-400); POLYS 82.7 %; RDW-CV 12.6 % (10.5-14.5)
[2019-07-04 05:53] LABS: CALCIUM 9.1 mg/dL (8.5-10.1); CREATININE 0.9 mg/dL (0.6-1.3); POTASSIUM 4.3 mmol/L (3.5-5.1)
--- NOTE | 2019-07-04 08:58 | EKG ---
[place] [address] ELECTROCARDIOGRAM REPORT Name: JACQUIE BAGLEY Room: [address] ADM IN .R.#: [id number] Admission: 07/03/19 Attend Phys: Mode Lynn Discharge: Date of : 57 Report #: [id number] THIS REPORT FOR: //name// 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
== END 2019-07-04 13:53 | disposition home or self-care (01) | DRG 305 ==
LOC: M.ERS 17:52 → M.2W 18:26 → M.TBA-ER 18:26 → M.2W 19:59
PROVIDERS: Family Medicine; ADMIT Internal Medicine
DX: I16.0 Hypertensive urgency (principal); E87.1 Hypo-osmolality and hyponatremia; I25.110 Atherosclerotic heart disease of native coronary artery with unstable angina pectoris; I10 Essential (primary) hypertension; I73.9 Peripheral vascular disease, unspecified; I65.29 Occlusion and stenosis of unspecified carotid artery; Z79.899 Other long term (current) drug therapy

== ENCOUNTER → 2019-07-10 | Outpatient (CLI) | payer OTHER ==
--- NOTE | 2019-07-16 19:34 | PAINCON ---
[address] [address] PAIN MANAGEMENT CONSULTATION Name: JACQUIE BAGLEY Room: [facility].#: [id number] Admission: 07/10/19 Attend Phys: Benito Kennedy MD Discharge: Date of : 57 Report #: [id number] THIS REPORT FOR: //name// CC: Herber Kennedy DATE OF SERVICE: 07/10/2019 CHIEF COMPLAINT: "I went to the hospital." HISTORY OF PRESENT ILLNESS: The patient is a 64-year-old female who has been followed in the Pain Clinic because of chronic pain involving her lower legs. As you may recall, she has some problems with vascular insufficiency. She has had vascular surgery in the lower extremities. Continues to have pain and discomfort. Sitting can worsen the pain. She noted a few days ago a headache. States that the headache was quite severe. She had an elevated blood pressure as well. She was seen in the Emergency Room. After a number of tests, she went home. Because of severe nausea and some chest pain, she returned and was admitted to the hospital for an overnight stay. She is scheduled in the near future to be evaluated by her dependency program director. She rates her pain as a 3-4 today. She has returned today for renewal of her medications. She feels that they provide 50-60% improvement in her pain. Notes that the pain is worse when she is sitting as well as with certain activities. Cold weather exacerbates her pain as well. Her medications as well as rest are helpful. She has seen a chiropractor in the past. ALLERGIES: No known drug allergies. CURRENT MEDICATIONS: Rosuvastatin 20 mg, lisinopril 20 mg, hydrocodone 5/325 one p.o. b.i.d., aspirin 81 mg. PAIN CLINIC ASSESSMENT AND PQRS: 1. The patient is not being treated for osteoarthritis or rheumatoid arthritis. 2. Height 5 feet 1 inch, weight 110 pounds, BMI is 20.8. 3. Vital signs: Blood pressure 129/68, heart rate 63, respiratory rate 16, room air saturation is 97%. 4. Temperature 97.8. 5. Pain intensity 10/22. 6. Fall history: The patient has not fallen in the last 3 months. 7. Blood thinner: The patient is not on a blood thinning medication. 8. Hypertension: The patient is being treated for hypertension. 9. Opioids greater than 6 weeks. The patient received medication from one source of the pain clinic. 10. Risk assessment tool low for opioid use. 11. [place] [address] PAIN MANAGEMENT CONSULTATION Name: JACQUIE BAGLEY Room: [facility]#: [id number] Admission: 07/10/19 Attend Phys: Benito Kennedy MD Discharge: Date of : 57 Report #: [id number] 12. Tobacco: The patient smoked in the past, smoked for about 10 years, does not smoke at this juncture. 13. Alcohol: The patient denies use of alcoholic beverages. PHYSICAL EXAMINATION: GENERAL: The patient is a well-developed, well-nourished white female. Appears her stated age. She is alert and oriented x 3. Her affect is appropriate. Speech is fluent. HEENT: Normocephalic, atraumatic. Extraocular eye muscles intact. Sclerae are nonicteric. Mucous membranes are moist. NECK: Without adenopathy or JVD. HEART: Regular rate. ABDOMEN: Nontender. EXTREMITIES: Upper extremity muscle strength judged to be 5/5 for the major muscle groups in the upper extremity. In the lower extremity, the patient has some pain and discomfort in the low groin area as well as pain down her legs. Pain is more problematic after prolonged sitting. The patient is without significant scoliosis, kyphosis or lordosis. IMPRESSION: 1. Chronic pain in the thigh and leg area, status post peripheral vascular surgeries. 2. Hypertension. The patient has had an episode of elevated blood pressures in the 200 to about 180 range and was hospitalized. 2. Peripheral vascular disease. 3. Hypercholesterolemia. RECOMMENDATIONS: We discussed treatment options with the patient. At this juncture, we will continue with her medications of hydrocodone. She feels that these medications are helpful. They enable her to engage in activities she would not be able to. She is using the medication as prescribed. She is aware that the opioid medications can be less effective as time goes on secondary to tolerance. Some patients can develop addiction. The patient does not show any signs of addiction. She is taking them as prescribed. She is scheduled in the near future to follow up with her dependency program director in regard to the elevated blood pressures and headache, which she was experiencing. No positive findings were noted in the past. She will call us if she has any concerns. A script for hydrocodone 5/325 one p.o. t.i.d. has been written. She will call us and the patient has been given two months of medications. <ELECTRONICALLY SIGNED> By: Benito Kennedy MD 07/16/19 1934 [id number] 2201N. Jeffrey Kennedy MD /nt
== END ==
LOC: M.PC 05:25
DX: G89.29 Other chronic pain (principal); I10 Essential (primary) hypertension; I73.9 Peripheral vascular disease, unspecified; E78.00 Pure hypercholesterolemia, unspecified

== ENCOUNTER → 2019-09-04 | Outpatient (CLI) | payer OTHER ==
--- NOTE | ~2019-09-04 | PAINCON ---
[facility] [address] [place] [address] PAIN MANAGEMENT CONSULTATION Name: JACQUIE BAGLEY [id number] Admission: 09/04/19 Attend Phys: Benito Kennedy MD Discharge: Date of : 57 Report #: [id number] THIS REPORT FOR: //name// CC: Herber Kennedy DATE OF SERVICE: 09/04/2019 CHIEF COMPLAINT: Low back pain and headaches. HISTORY: The patient is a 64-year-old female who has been followed in the pain clinic. As you may recall, she has problems with lower extremity pain. She does have some vascular problems. This is secondary to vascular insufficiency. She has had grafting in the groin area. She continues to have pain with certain activities. Prolonged standing exacerbates her discomfort. She has also had some pain, which involves the occipital area. It can be problematic in certain times, not as problematic today. She feels that the hydrocodone that she uses to help control the pain helps her about 50-60% with pain control. She has noticed activities in the colder weather have been more problematic. Sitting can be problematic. Activity can exacerbate the discomfort as well. She has returned today with hopes of renewing her medications. She may consider treatment for the occipital headaches in the future. ALLERGIES: No known drug allergies. CURRENT MEDICATIONS: Rosuvastatin 20 mg, lisinopril 20 mg, hydrocodone 5/325 one p.o. b.i.d., and aspirin 81 mg. PAIN CLINIC ASSESSMENT AND PQRS: 1. The patient is not being treated for osteoarthritis or rheumatoid arthritis. 2. Height 5 feet 1 inch, weight 110 pounds, BMI is 21. 3. Vital Signs: Blood pressure 137/85, heart rate 71, respiratory rate 16, room air saturation 94%, and temperature 96.6. 4. Pain intensity 4/10. 5. Fall history: The patient has not fallen in the last 3 months. 6. Blood thinner. The patient is not on a blood thinning medication. 7. Hypertension. The patient is being treated for hypertension. 8. Opioids greater than 6 weeks. The patient receives medication from one source, the pain clinic. 9. Risk assessment tool, low for opioids. 10. Functional assessment tool . 11. Tobacco: The patient smoked in the past. She smoked for about 10 years, does not smoke at this juncture. 12. Alcohol. The patient denies frequent use of alcoholic beverages. PHYSICAL EXAMINATION: [address] [place] [address] PAIN MANAGEMENT CONSULTATION Name: JACQUIE BAGLEY Room: [facility]#: [id number] Admission: 09/04/19 Attend Phys: Benito Kennedy MD Discharge: Date of : 57 Report #: [id number] GENERAL: The patient is a well-developed, well-nourished white female. Appears her stated age. She is alert and oriented x 3. Her affect is appropriate. Speech is fluent. HEENT: Normocephalic, atraumatic. Extraocular eye muscles intact. Sclerae nonicteric. Mucous membranes are moist. The patient does have some soreness and tenderness in the area of the left and right occipital nerve. HEART: Regular rate. ABDOMEN: Nontender. EXTREMITIES: Upper extremity muscle strength judged to be 5/5 for the major muscle groups in the upper extremity. Lower extremity, the patient has pain and discomfort that radiates down into her legs. She notes that the pain is more problematic after prolonged sitting. The patient is without significant scoliosis, kyphosis or lordosis. IMPRESSION: 1. Chronic pain in the thighs and leg areas. Status post peripheral vascular surgeries. 2. Hypertension. The patient has a history of elevated blood pressures in the 200-180 range and has been hospitalized. 3. Peripheral vascular disease. 4. Hypercholesterolemia. 5. Pain in the occipital areas. RECOMMENDATIONS: We discussed treatment options with the patient. At this juncture, we will continue with her current medications. She feels that these medications continue to be helpful. She is not having any problems with their use. She is able to think clearly. She is aware that opioid medications can cause some patients develop addiction. She has not shown any signs of addiction. She will consider using a tennis ball to roll and massage the posterior portion of her neck in the occipital areas. Hopefully, she will find that this is beneficial. Also, massage this area can be helpful. Should her pain continue to be problematic, we have discussed the possibility of injections in the occipital areas to help decrease the pain and discomfort. We would like to thank you for letting us participate in her care. We hope she continues to improve. A script for her medications have been written. She will continue with hydrocodone 5/325 one p.o. t.i.d. By: [id number]. Jeffrey Kennedy MD /kris
== END ==
LOC: M.PC 09:30
DX: G89.29 Other chronic pain (principal); I10 Essential (primary) hypertension; I73.9 Peripheral vascular disease, unspecified; E78.00 Pure hypercholesterolemia, unspecified

== ENCOUNTER → 2019-10-30 | Outpatient (CLI) | payer OTHER ==
--- NOTE | ~2019-10-30 | PAINCON ---
[facility] [address] [place] [address] PAIN MANAGEMENT CONSULTATION Name: JACQUIE BAGLEY Room: [facility]#: [id number] Admission: 10/30/19 Attend Phys: Benito Kennedy MD Discharge: Date of : 57 Report #: [id number] THIS REPORT FOR: //name// cc: Herber Jean Baptiste MD, David L. MD ~ THIS REPORT FOR: //name// CC: Herber Kennedy DATE OF SERVICE: 10/30/2019 CHIEF COMPLAINT: Low back pain. HISTORY: The patient is a 64-year-old female who has been followed in the pain clinic. She has pain in her lower extremities. She does have some problems with vascular insufficiency. She has had vascular surgeries. Has grafting in the groin area. Continues to have some pain and discomfort, which is improved with use of hydrocodone. She also has some occipital headaches. They can be somewhat problematic at times. Overall, things are going reasonably well with her medications. She would like to have her medications renewed. Notes that the pain worsens with a change in the weather. She will consider possibility of injections of local anesthetic and steroid for the occipital nerve pain in the future. ALLERGIES: No known drug allergies. CURRENT MEDICATIONS: Rosuvastatin 20 mg, lisinopril 20 mg, hydrocodone 5/325 one p.o. b.i.d., aspirin 81 mg. PAIN CLINIC ASSESSMENT AND PQRS: 1. The patient is not being treated for osteoarthritis or rheumatoid arthritis. 2. Height 5 feet 1 inch, weight 109 pounds, BMI is 20. 3. Vital Signs: Blood pressure 149/83, heart rate 64, respiratory rate 16, room air saturation 97%, temperature is 96.9. 4. Pain intensity 5-6/10. 5. Fall history: The patient has not fallen since we saw her last. 6. Blood thinner. The patient is not on a blood thinning medication. 7. Hypertension. The patient is being treated for hypertension. 8. Opioids greater than 6 weeks. The patient received medication from one source the pain clinic. 9. Risk assessment tool, low for opioid use. 10. Functional assessment tool . 11. Tobacco: The patient has smoked tobacco in the past. Stopped about [place] [address] PAIN MANAGEMENT CONSULTATION Name: KEVYNJACQUIE R Room: [facility]#: [id number] Admission: 10/30/19 Attend Phys: Benito Kennedy MD Discharge: Date of : 57 Report #: [id number] 12. Alcohol. The patient denies use of alcohol. PHYSICAL EXAMINATION: GENERAL: The patient is a well-developed, well-nourished white female. Appears her stated age. She is alert and oriented x 3. Her affect is appropriate. Speech is fluent. HEENT: Normocephalic, atraumatic. Extraocular eye muscles intact. Sclerae nonicteric. Mucous membranes are moist. NECK: Without adenopathy or JVD. HEART: Regular rate. ABDOMEN: Nontender. EXTREMITIES: Upper extremity muscle strength judged to be 5/5 for the major muscle groups in the upper extremity. Lower extremity, the patient does note some pain that radiates down into her legs. Pain becomes more problematic with prolonged sitting. It can be exacerbated with walking. The patient without significant scoliosis, kyphosis or lordosis. IMPRESSION: 1. Chronic pain in the lower extremities, leg and thigh area, status post peripheral vascular surgeries. 2. Hypertension. The patient has history of elevated blood pressures 200-180 range and has been hospitalized for this in the past. 3. Peripheral vascular disease. 4. Hypercholesterolemia. 5. Headaches with occipital pain. RECOMMENDATIONS: We discussed treatment options with the patient. At this juncture, we will continue with the patient's current medications. She finds the medications are helpful. She has taken the medication as prescribed. She is not having any problems with addiction. She is able to think clearly with her medications. Keeps her medications in a guarded area. She is having some pain and discomfort in the occipital area. In the future, she will consider the possibility of injection of pain areas in the occipital area. A script for her medications of hydrocodone 5 mg 1 p.o. t.i.d. has been rewritten for the next 2 months. The patient will call us if she has any concerns about her medications. We would like to thank you for letting us participate in her care. We hope she continues to improve. By: [id number]. Jeffrey Kennedy MD /kris
== END ==
LOC: M.PC 03:49
DX: G89.29 Other chronic pain (principal); I10 Essential (primary) hypertension; E78.00 Pure hypercholesterolemia, unspecified; I73.9 Peripheral vascular disease, unspecified; G44.89 Other headache syndrome; M54.81 Occipital neuralgia; Z79.891 Long term (current) use of opiate analgesic

== ENCOUNTER → 2019-12-25 | Outpatient (CLI) | payer OTHER ==
--- NOTE | 2020-01-08 22:11 | PAINCON ---
[address] [address] PAIN MANAGEMENT CONSULTATION Name: JACQUIE BAGLEY Room: [facility]#: [id number] Admission: 12/25/19 Attend Phys: Benito Kennedy MD Discharge: Date of : 57 Report #: [id number] THIS REPORT FOR: //name// cc: Herber Jean Baptiste MD, David L. MD ~ THIS REPORT FOR: //name// CC: Herber Kennedy DATE OF SERVICE: 12/25/2019 PRIMARY CARE PHYSICIAN: Herber Jean Baptiste MD CHIEF COMPLAINT: Continued lower leg pain. HISTORY: The patient is a 64-year-old female who has been followed in the pain clinic. As you recall, she continues to have pain and discomfort. She has pain in her low back. She also has pain in her legs. The pain in her legs is a deep aching discomfort. It increases with activity. It is more problematic when she is sitting. She finds that her pain medications continued to be helpful. She would like to continue with her medications and has returned today for renewal of medications. She is not having any problems with the hydrocodone. She rates her pain as a 2/10 at this juncture. ALLERGIES: No known drug allergies. CURRENT MEDICATIONS: Rosuvastatin 20 mg, lisinopril 20 mg, hydrocodone 5/325 one p.o. t.i.d. and aspirin 81 mg. PAIN CLINIC ASSESSMENT AND PQRS: 1. The patient is not being treated for osteoarthritis or rheumatoid arthritis. 2. Height 5 feet 1 inch, weight 110 pounds, BMI is 21. 3. Vital signs: Blood pressure 139/74, heart rate 63, respiratory rate 16, room air saturation 97%. 4. Temperature 97.9. 5. Pain intensity is 2/10. 6. Fall history: The patient has not fallen in the last 3 months. 7. Blood thinner. The patient is not on a blood thinning medication. 8. Hypertension. The patient is being treated for hypertension. 9. Opioids greater than 6 weeks. The patient receives medication from the pain clinic. 10. Risk assessment tool, low for opioid use. 11. Functional assessment tool . 12. Recreational drug use. The patient denies. 13. Tobacco: The patient has not smoked in [place] [address] PAIN MANAGEMENT CONSULTATION Name: JACQUIE BAGLEY Room: [facility]#: [id number] Admission: 12/25/19 Attend Phys: eBnito Kennedy MD Discharge: Date of : 57 Report #: [id number] 14. Alcohol. The patient denies use of alcoholic beverages. PHYSICAL EXAMINATION: GENERAL: The patient is a well-developed, well-nourished white female. Appears her stated age. She is alert and oriented x 3. Her affect is appropriate. Speech is fluent. HEENT: Normocephalic, atraumatic. Extraocular eye muscles intact. Sclerae nonicteric. Mucous membranes are moist. NECK: Without adenopathy or JVD. HEART: Regular rate. ABDOMEN: Nontender. EXTREMITIES: Upper extremity muscle strength judged to be 5/5 for the major muscle groups in the upper extremity. The patient has pain and discomfort in lower portion of her legs. Pain is more problematic with prolonged sitting. Exacerbated pain in legs when walking. The patient is without significant scoliosis, kyphosis or lordosis. IMPRESSION: 1. Chronic pain in the lower extremity. It involves the legs and anterior thigh area, status post peripheral vascular surgeries. 2. Hypertension. The patient has a history of elevated blood pressures in the 200-180 systolic range. 3. Peripheral vascular disease. 4. Hypercholesterolemia. 5. Headaches in the occipital area. RECOMMENDATIONS: We discussed treatment options with the patient. Risks and benefits of her medications has been reviewed. The patient feels medications continue to be helpful. She finds the medications are useful. Notes that she is not having any problems with addiction. She has taken the medication as prescribed. She is thinking clearly. She does keep her medications in a guarded area. She has continued to note some occipital headaches. She is considering the possibility in the future of occipital nerve blocks. The patient has returned and would like to have her medications of hydrocodone 5 mg 1 p.o. t.i.d. rewritten. A script for these medications have been provided. The patient has been given a script for the next 2 months. She will call us if she has any concerns. We would like to thank you for letting us participate in her care. We hope she continues to improve. <ELECTRONICALLY SIGNED> By: Benito Kennedy MD 01/08/202210 30 0132Honorio. Jeffrey Kennedy MD /EREN
== END ==
LOC: M.PC 05:14
DX: M79.604 Pain in right leg (principal); M79.605 Pain in left leg; M54.5 Low back pain; I10 Essential (primary) hypertension; I73.9 Peripheral vascular disease, unspecified; E78.00 Pure hypercholesterolemia, unspecified; F11.20 Opioid dependence, uncomplicated; R51 Headache; Z87.891 Personal history of nicotine dependence; Z79.899 Other long term (current) drug therapy

== ENCOUNTER 2020-02-11 09:30 | Inpatient (IN) | payer OTHER ==
[~2020-02-11] VITALS: Ht 152.4 cm; Wt 51.1 kg
[2020-02-11] VITALS (20 sets, daily range): BP systolic 96–179; BP diastolic 53–126
--- NOTE | ~2020-02-11 | H ---
[address] [address] HISTORY AND PHYSICAL Name: JACQUIE BAGLEY Room: [address] IN M.R.#: [id number] Admission: 02/11/20 Attend Phys: Herber Archibald MD, F Discharge: 02/13/20 Date of : 57 Report #: [id number] THIS REPORT FOR: //name// cc: Herber Jean Baptiste MD, David L. MD ~ THIS REPORT FOR: //name// Please refer to the History and Physical performed in the physician's office. By: [facility] /YOON
[2020-02-11 10:41] LABS: HEMATOCRIT 43.1 % (37.0-47.0); HEMOGLOBIN 14.9 gm/dL (12.0-15.0); MCH 34.1 pg (26.0-34.0); MCHC 34.6 g/dL (28.0-37.0); MCV 98.5 fL (80.0-100.0); MPV 7.6 fl. (7.2-11.1); RBC 4.37 mil/uL (4.20-5.00); RDW-CV 12.8 % (10.5-14.5); WBC 7.6 thou/uL (4.0-11.0)
[2020-02-11] MEDS ORDERED: NORCO 5-325 TA1 EAC1 PO (10:51)
[2020-02-11 10:53] LABS: ANION GAP 7 mmol/L (7-16); APTT 28.5 Seconds (25.0-31.3); BUN 15 mg/dL (7-18); CALCIUM 9.4 mg/dL (8.5-10.1); CHLORIDE 104 mmol/L (98-107); CO2 27 mmol/L (21-32); CREATININE 0.8 mg/dL (0.6-1.3); GLUCOSE 105 mg/dL (70-99); INR 1.1; POTASSIUM 4.2 mmol/L (3.5-5.1); PROTIME 11.4 Seconds (9.20-11.50); SODIUM 138 mmol/L (136-145)
[2020-02-11] MEDS ORDERED: MELATONIN10 M3 PO (10:54)
[2020-02-11] MEDS ORDERED: VITAMIN D3250 MC1 PO (10:55)
[2020-02-11] MEDS ORDERED: CENTRUM SILVER1 EAC6 PO (10:56)
[2020-02-11 10:57] LABS: ALBUMIN 4.3 g/dL (3.4-5.0); ALKALINE PHOSPHATASE 67 U/L (46-116); CHOLESTEROL 188 mg/dL (<200); HDL CHOLESTEROL 66 mg/dL (>40); LDL CHOLESTEROL 95 mg/dL (<100); SGOT 23 U/L (15-37); SGPT 27 U/L (30-65); TC:HDL 2.8 Ratio (Not establshd); TOTAL BILIRUBIN 0.3 mg/dL (<0.1-1.0); TOTAL PROTEIN 7.9 g/dL (6.4-8.2); TRIGLYCERIDE 135 mg/dL (<150); VLDL 27 mg/dL (<40)
[2020-02-11] MEDS ORDERED: FISH OIL 1,0001 EAC9 PO (10:57)
[2020-02-11 10:58] LABS: SERUM ASSESSMENT Clear
[2020-02-11] MEDS ORDERED: CALCIUM CARBON200 M1 PO (11:00)
--- NOTE | 2020-02-11 15:23 | EKG ---
[place] [address] ELECTROCARDIOGRAM REPORT Name: BLAYNE BAGLEYJAYLIN Figueredo Room: [facility] ADM IN .R.#: [id number] Admission: 02/11/20 Attend Phys: Herber Archibald MD Discharge: Date of : 57 Date of Service: 02/11/20 1050 Report #: [id number] THIS REPORT FOR: //name// [facility] Test Date: 2020-02-11 Test Time: 10:50:55 Pat Name: JACQUIE BAGLEY Department: Room: [facility] Gender: F Newspaper Delivery Driver: : 1955 Requested By: Herber Archibald Order Number: [id number] Reading MD: Herber Archibald Measurements Intervals [place] Rate: 63 P: 64 AL: 161 QRS: 71 QRSD: 98 T: 72 QT: 412 QTc: 422 Interpretive Statements Sinus rhythm Consider RVH or posterior infarct Probable inferior infarct, old Electronically Signed On 02-11-2020 15:22:55 CDT by Herber Archibald [email or web address] <ELECTRONICALLY SIGNED> By: Herber Archibald MD, [facility] 02/11/20 1522 1050 105 Herber Archibald MD, [facility] /EPI
--- NOTE | 2020-02-11 16:18 | CARD ---
[address] [address] CARDIAC CATH REPORT Name: JACQUIE BAGLEY Terell Room: [address] IN [facility]#: [id number] Admission: 02/11/20 Attend Phys: Herber Archibald MD, F Discharge: Date of : 57 Report #: [id number] THIS REPORT FOR: //name// cc: Herber Jean Baptiste MD, David L. MD ~ APPROVED REPORT Study performed: 02/11/2020 10:17:54 Patient Details Patient Status: Out-Patient Room #: The patient is a 64 year-old female Event Personnel Herber Archibald Print Graphic Designer, Tonia Verma RN RN, Evans [place] SPRAY DRY OPERATOR Monitor, Fatmata Banerjee RTR ChristyubCristela David Technical Data Analyst, Jose Bear SPRAY DRY OPERATOR Monitor Procedures Performed Left Heart Cath w/or w/o Coronaries [id number] [facility] [address] w/wo Plasty Single RCA [id number] Indication Abnormal ECG, Chest pain Risk Factors Arterial Hypertension, Cerebrovascular DiseasePeripheral Vascular Disease, Hypercholesterolemia Previous Procedures/Diagnoses Previous Vascular Surgery Admission/Lab Medications/Medications given during procedure Glycoprotein IllbIlla Inhibitors, Heparin Unfract. Procedure Narrative The patient was brought electively to the Cardiac Catheterization Laboratory and was prepped and draped in a sterile manner. The right wrist was infiltrated with 1% Lidocaine subcutaneous anesthesia. A 6 F Slender Glidesheath sheath was inserted into the RRA. Coronary angiography was performed using coronary diagnostic catheters. The right coronary system was accessed and visualized with a JR4 5fr catheter. The left coronary system was accessed and visualized with a JL 3.5 5fr catheter. The left ventricle [place] [address] CARDIAC CATH REPORT Name: BLAYNE BAGLEYJAYLIN Figueredo Room: [address] IN [facility]#: [id number] Admission: 02/11/20 Attend Phys: Herber Archibald MD, F Discharge: Date of : 57 Report #: [id number] with a PC: Angled Pig 5fr catheter. Left ventricular/Aortic Valve gradient assessed via catheter pullback. Left ventriculogram was performed in WHARTON projection. Closure device was deployed with a 6 Fr R-Band. There was no hematoma. Intraoperative Conscious Sedation Sedation start time: 1141 Case end Time: 1311 Fentanyl 75 mcg Fluoro Time: 18.8 minutes Dose: DAP 11408 cGycm2 900 mGy Contrast Type and Amount: Omnipaque 210 ml Coronary Angiography The patient's coronary anatomy is right dominant. Diagnostic Cath Left Main 0% stenosis LAD 0% stenosis Circumflex 40% proximal stenosis Right Coronary 80% proximal stenosis RPLV 80% proximal stenosis in a small vessel Ramus 70% ostial stenosis Left Ventriculography The left ventricular ejection fraction is estimated to be 55-60%. Left ventricular wall motion abnormalities are not present. There is no mitral insufficiency. Hemodynamics The aortic pressure is 96/55 mmHg with a mean of 74 mmHg. The left ventricular pressure is 105/5 mmHg with a mean of mmHg. The left ventricular end diastolic pressure is 9 mmHg. There was no gradient across the aortic valve upon pullback. Pullback from the left ventricle to the aorta revealed no gradient across the aortic valve. PCI Technique Lesion Anticoagulation was achieved with Heparin. bolus of iv aggrastat given Percutaneous coronary intervention was performed on the proximal right coronary artery. The lesion stenosis prior to intervention was 80% with RICARDO 3 flow. A 6FR JCR 4 100CM Guide Catheter was used to engage the rca ostium. A IG: BMW 190cm Interventional Guidewire was used to cross the lesion. [place] [address] CARDIAC CATH REPORT Name: JACQUIE BAGLEY Room: [address] IN [facility]#: [id number] Admission: 02/11/20 Attend Phys: Herber Archibald MD, F Discharge: Date of : 57 Report #: [id number] A Balloon catheter Mini Trek RX 2.0 X 12 was inserted and inflated up to 22atm for 32seconds. Repeat angiography revealed the following post-dilatation results: 80% stenosis. Unable to advance stent to area of stenosis because of lack of quide support and tortuous proximal rca. Attempted using a wilma wire, as well as a guide liner catheter. Appeared to be spasm of the rca, and the patient was given IC Nitroglycerin. Proximal dissection noted. STENT DEPLOYMENT A bare metal stent CATH MINI VISION RX 2.5 X 15 was inserted and inflated up to 18.00atm for 12seconds. Repeat angiography revealed the following post-stent deployment results: 0% stenosis, although distal vessel occluded with slow antegrad flow. Additional Inflation: 22.00atm for 32seconds. Final angiography reveals 100 % stenosis with RICARDO 1 flow. Conclusion 1. 80% proximal stenosis of the rca, and 70% ostail stenosis of the ramus artery. 2. LVEF 60-65% 3. stent placement of the rca was unsuccessful secondary to torturous rca, and lack of guide support. 4. PTCA of the mid rca resulted in residual 80% stenosis 5. dissection of the proximal rca appeared to be secondary to the guide catheter 6. placement of a bare metal stent in the proximal rca appeared to cover the dissection, although the mid rca appeared occluded with only faint antegrade flow Recommendations Cardiac Rehabilitation Referral Aggressive Medical Therapy Medications Administered Prasugrel <ELECTRONICALLY SIGNED> By: Herber Archibald MD, [facility] 02/11/201616 16 16Daaleksey Archibald MD, FAC /INF
--- NOTE | 2020-02-11 16:30 | NUR ---
PT ORIENTED TO ROOM AND UNIT BED LOW AND LOCKED, SIDE RAILS UP X3, CALL LIGHT IN REACH. TELE APPLIED. WILL CONTINUR TO ASSESS.
--- NOTE | 2020-02-11 17:14 | NUR ---
CELIA WITH DR. MORALES AT NURSING STATION ABOUT ELEVATED BP AND INSTRUCTED TO GIVE IV HYDRALAZINE. WILL CUT IVF IN HALF AND AND CONTINUE TO ASSESS.
--- NOTE | 2020-02-11 17:51 | NUR ---
REMOVE TR BAND AND PLACE 4X4 WITH CLEAR TEGADERM DRESSING.
[2020-02-12] VITALS (15 sets, daily range): BP systolic 97–141; BP diastolic 21–85
[2020-02-12 04:25] LABS: HEMATOCRIT 37.8 % (37.0-47.0); MCH 33.5 pg (26.0-34.0); MCHC 34.1 g/dL (28.0-37.0); MCV 98.4 fL (80.0-100.0); MPV 7.2 fl. (7.2-11.1); RBC 3.85 mil/uL (4.20-5.00); RDW-CV 12.8 % (10.5-14.5); WBC 10.6 thou/uL (4.0-11.0)
[2020-02-12 04:46] LABS: CALCIUM 8.7 mg/dL (8.5-10.1); CREATININE 0.9 mg/dL (0.6-1.3); POTASSIUM 3.9 mmol/L (3.5-5.1)
[2020-02-12 04:47] LABS: HEMOGLOBIN 12.9 gm/dL (12.0-15.0)
[2020-02-12 05:19] LABS: TROPONIN-I LEVEL 60.54 ng/mL (<0.06)
--- NOTE | 2020-02-12 07:52 | NUR ---
SR ON DISPENSING AND MEASURING OPTICIAN THIS SHIFT. PT C/O NAUSA AT START OF SHIFT. PT DENIES CHEST PAIN. HOURLY ROUNDING COMPLETED. CALL LIGHT WITHIN REACH. NEGATIVE SEPSIS SCREENING.
--- NOTE | 2020-02-12 09:07 | EKG ---
[place] [address] ELECTROCARDIOGRAM REPORT Name: KEVYNJACQUIE R Room: [address] ADM IN M.R.#: [id number] Admission: 02/11/20 Attend Phys: Herber Archibald MD Discharge: Date of : 57 Date of Service: 02/12/20 0822 Report #: [id number] THIS REPORT FOR: //name// [facility] Test Date: 2020-02-12 Test Time: 08:22:27 Pat Name: JACQUIE BAGLEY Department: Room: [address] Gender: F Account Management Assistant: : 1955 Requested By: Herber Archibald Order Number: [id number] Reading MD: Joo Lugo Measurements Intervals [place] Rate: 66 P: 68 SD: 156 QRS: -50 QRSD: 87 T: 82 QT: 404 QTc: 424 Interpretive Statements Sinus rhythm Consider RVH or posterior infarct Inferior infarct, acute (RCA) Probable anterolateral infarct, old Probable RV involvement, suggest recording right precordial leads Compared to ECG 02/11/2020 10:50:55 No significant changes Electronically Signed On 02-12-2020 9:06:26 CDT by Joo Lugo [email or web address] <ELECTRONICALLY SIGNED> By: Joo Lugo MD, FAC 02/12/20905 1 1 Joo Lugo MD, [facility] /EPI
--- NOTE | 2020-02-12 10:43 | NUR ---
RECEIVED REPORT FROM ZOFIA SIMPSON. ASSUMED CARE OF PT AROUND 0715. PT A&O X4. AM ASSESSMENT AND VITALS COMPLETED CHARTED. CARDIOLOGY IN TO SEE PT - MADE TELE STATUS, PLAN IS FOR PT TO TRANSFER UPSTAIRS WHEN BED AVALIABLE. PT DENIED PAIN THIS AM. RIGHT RADIAL CATH SITE CDI. PT DID COMPLAIN OF NAUSEA AFTER EATING, IV ANTI-NAUSEA MED GIVEN WITH RELIEF. ACID CORRECTION HAND IN PLACE. PT CURRENTLY RESTING IN BED. CALL LIGHT IS WITHIN REACH. REPORT GIVEN TO JAUN SIMPSON.
--- NOTE | 2020-02-12 10:49 | NUR ---
REPORT RECIEVED FROM PREVIOUS RN.
--- NOTE | 2020-02-12 11:42 | NUR ---
REPORT GIVEN TO HAND SLITTER. PT TRANSFERRED TO ROOM 211.
--- NOTE | 2020-02-12 12:32 | NUR ---
ICU rounds: ICU rounds: Tele status. Planned cath. Pt is A&O. Resides at home with her . No DME. No hx of HH or SNF. Pt is tele status, moved to room 211. Following.
--- OUTSIDE RECORDS SUMMARY | 2020-02-12 16:12 | XMS REPORT | Summary of Care ---
Demographics + + + | Address | [address] | | | [place] [address] | + + + | Home Phone | | + + + | Preferred Language | Unknown | + + + | Marital Status | | + + + | Buddhist Affiliation | 1013 | + + + | Race | White | + + + | Ethnic Group | Not or | + + + Author + + + | Author | [facility] | + + + | Organization | [facility] | + + + | Address | Unknown | + + + | Phone | Unavailable | + + + Support + + +---------+ + | Name | Relationship | Address | Phone | + + +---------+ + | Parviz Snowden | ECON | Unknown | | + + +---------+ + Care Team Providers + +------+ + | Care Tests Superintendent Name | Role | Phone | + +------+ + | Herber Jean Baptiste MD | PCP | | + +------+ + Encounter Details +------+---------+ + + + | Date | Type | Department | Care Team | Description | +------+---------+ + + + | 06/3 | Letter | [place] | Herber Archibald, | | | 0/20 | (Out) | Jess Torres | [address] | [address] | [place] | | | | | Dany [place]zola | Eric Pope | | | | | Eric Torres | [place] [address] | | | | | [place] [address] | [phone] | | | | | [phone] | [phone] | | | | | | (Fax) | | +------+---------+ + + + Allergies No Known Allergiesdocumented as of this encounter (statuses as of 02/12/2020) Medications + + +---------+--------+-----+-----+------+ | Medication | Sig | Dispens | Refill | Sta | End | Stat | | | | ed | s | rt | | us | | | | | | Rigo | Rigo | | | | | | | e | e | | + + +---------+--------+-----+-----+------+ | acetaminophen | Take 650 mg by | | 0 | | | Acti | | (TYLENOL) 325 MG | mouth once as | | | | | ve | | tablet | needed for mild | | | | | | | | pain (1-3). | | | | | | + + +---------+--------+-----+-----+------+ | Multiple | Take by mouth | | 0 | | | Acti | | Vitamins-Mineral | daily. | | | | | ve | | s (CENTRUM | | | | | | | | SILVER ULTRA | | | | | | | | WOMENS PO) | | | | | | | + + +---------+--------+-----+-----+------+ | calcium | Take 200 mg by | | 0 | | | Acti | | carbonate 1250 | mouth 2 (two) | | | | | ve | | MG capsule | times a day with | | | | | | | | meals. | | | | | | + + +---------+--------+-----+-----+------+ | fish | Take 1 g by | | 0 | | | Acti | | oil-omega-3 | mouth daily. | | | | | ve | | fatty acids 1000 | | | | | | | | MG CAPS | | | | | | | + + +---------+--------+-----+-----+------+ | | Take 1,000 Units | | 0 | | | Acti | | cholecalciferol | by mouth daily. | | | | | ve | | (VITAMIN D3) | | | | | | | | 1000 units | | | | | | | | tablet | | | | | | | + + +---------+--------+-----+-----+------+ | Melatonin 10 | Take 1 tablet by | | 0 | | | Acti | | MG | mouth daily. | | | | | ve | | TABSIndications: | | | | | | | | at bedtime | | | | | | | + + +---------+--------+-----+-----+------+ | | Take 1 tablet by | | 0 | | | Acti | | HYDROcodone-acet | mouth every 6 | | | | | ve | | aminophen | (six) hours as | | | | | | | (NORCO) 5-325 MG | needed for | | | | | | | per tablet | moderate pain | | | | | | | | (4-6) | | | | | | + + +---------+--------+-----+-----+------+ | lisinopril | TAKE 1 TABLET BY | 30 | 10 | 12/ | | Acti | | (PRINIVIL,ZESTRI | MOUTH EVERY DAY | tablet | | 09/ | | ve | | L) 20 MG tablet | | | | 201 | | | | | | | | 9 | | | + + +---------+--------+-----+-----+------+ | rosuvastatin | TAKE 1 TABLET BY | 90 | 3 | 01/ | | Acti | | (CRESTOR) 20 MG | MOUTH DAILY | tablet | | 07/ | | ve | | tablet | | | | 202 | | | | | | | | 0 | | | + + +---------+--------+-----+-----+------+ | nitroglycerin | Place 1 tablet | 25 | 5 | 06/ | 06/ | Acti | | (Nitrostat) 0.4 | (0.4 mg total) | tablet | | 22/ | 22/ | ve | | MG SL tablet | under the tongue | | | 202 | 202 | | | | every 5 (five) | | | 0 | 1 | | | | minutes as | | | | | | | | needed for chest | | | | | | | | pain | | | | | | + + +---------+--------+-----+-----+------+ documented as of this encounter (statuses as of 02/12/2020) Active Problems + + + | Problem | Noted Date | + + + | Tobacco dependence in remission | 02/04/2020 | + + + | Chronic bilateral low back pain without sciatica | 05/23/2018 | + + + | Zoster without complications | 11/28/2017 | + + + | Chronic pain of both knees | 11/28/2017 | + + + | Chest discomfort | 07/14/2017 | + + + | PAD (peripheral artery disease) | 07/14/2017 | + + + + + | Overview: Acute left femoral artery occlusion, | | chronic occlusion of the right common iliac artery, | | high-grade stenosis near occlusion of left SFA | | popliteal artery, status post lower extremity bypass, | | Abdominal Ao. stenting with Dr. Serrano June 08 | | 2016 during workup for cerebral arteriogram for | | [facility] | | carotid artery occlusion, left internal carotid, | | right carotid artery less than 50%, followed by AUG[facility] | | Dr. Gallardo | + + + + + | Chronic fatigue | 06/14/2017 | + + + | Vasculopathy | 06/14/2017 | + + + | Chest pain | 04/25/2017 | + + + | Chronic viral hepatitis C | 04/25/2017 | + + + | Essential (primary) hypertension | 04/25/2017 | + + + | Hyperlipidemia | 04/25/2017 | + + + documented as of this encounter (statuses as of 02/12/2020) Social History + + +---------+--------+ + | Tobacco Use | Types | Packs/D | Years | Date | | | | ay | Used | | + + +---------+--------+ + | Former Smoker | Cigarettes | 0.5 | 25 | Quit: 2008 | + + +---------+--------+ + + +---+---+---+ | Smokeless | | | | | Tobacco: Never | | | | | Used | | | | + +---+---+---+ + + +---------+ + | Alcohol Use | Drinks/Week | oz/Week | Comments | + + +---------+ + | Yes | | | | + + +---------+ + + + + | Sex Assigned at | Date Recorded | | | | + + + | Not on file | | + + + + + + + | Job Start Date | Occupation | Industry | + + + + | Not on file | Not on file | Not on file | + + + + + + + + | Travel History | Travel Start | Travel End | + + + + + + | No recent travel history | | available. | + + documented as of this encounter Last Filed Vital Signs Not on filedocumented in this encounter Plan of Treatment +------+---------+ + + + | Date | Type | Specialty | Care Team | Description | +------+---------+ + + + | 05/15 | Office | Internal | Ita, | | | 05/04 | Visit | Medicine | MD [address] | | [address] | | | [address] | | | | | | [facility] [address] | | | | | | [place], | | | | | | [place] [address] | | | | | | [phone] | | | | | | [phone] | | | | | | (Fax) | | +------+---------+ + + + + +---------+ + + | Health | Due | Last Done | Comments | | Maintenance | Date | | | + +---------+ + + | COLONOSCOPY | | | | | | 956 | | | + +---------+ + + | MAMMOGRAM | | 04/15/2018, 04/22/2017 | | | | 019 | | | + +---------+ + + | INFLUENZA | | 05/29/2019 (Declined) | | | VACCINE | 020 | | | + +---------+ + + | PAP SMEAR | | 08/15/2017 | | | | 021 | | | + +---------+ + + documented as of this encounter Results Not on filedocumented in this encounter Insurance + +------+ +------+-------+---------+------+ | Payer | Bene | Subscrib | Effe | Phone | Address | Type | | | fit | er ID | ctiv | | | | | | Plan | | e | | | | | | / | | Date | | | | | | Grou | | s | | | | | | p | | | | | | + +------+ +------+-------+---------+------+ | BCBS [place] | BCBS | [id number] | 08/15/ | | | | | | | xxxx | 2018 | | | | | | [place] | | -Pre | | | | | | | | sent | | | | | | CITY | | | | | | + +------+ +------+-------+---------+------+ documented as of this encounter"
[2020-02-13] VITALS: BP 103/56
[2020-02-13 05:00] VITALS: BP 101/51
--- NOTE | 2020-02-13 06:31 | NUR ---
NO ACUTE CHANGES THROUGHOUT SHIFT. ALL ROUNDINGS COMPLETED, ALL NEEDS MET, FULL ASSESSMENT COMPLETED CHARTED.
[2020-02-13 08:53] VITALS: BP 124/70
[2020-02-13 09:04] VITALS: BP 124/70
[2020-02-13] MEDS ORDERED: ACETAMINOPHEN PO (10:54)
[2020-02-13] MEDS ORDERED: TOPROL XL25 MG PO (10:58)
--- NOTE | 2020-02-13 11:19 | NUR ---
PT DISCHARGED HOME WITH AMBULATED NO PAIN NO CONCERNS OR QUESTIONS FOLLOW UP APPOINTMENTS GIVEN AND SCRIPTS WITH EDUCATION
--- NOTE | 2020-02-13 11:42 | EKG ---
[place] [address] ELECTROCARDIOGRAM REPORT Name: JACQUIE BAGLEY Room: [address] IN M.R.#: [id number] Admission: 02/11/20 Attend Phys: Herber Archibald MD Discharge: 02/13/20 Date of : 57 Date of Service: 02/13/2018 Report #: [id number] THIS REPORT FOR: //name// [facility] Test Date: 2020-02-13 Test Time: 08:18:08 Pat Name: JACQUIE BAGLEY Department: Room: [facility] Gender: F Member Of Parliament: : 1955 Requested By: Herber Archibald Order Number: [id number] Reading MD: Herber Archibald Measurements Intervals [place] Rate: 70 P: 68 NM: 142 QRS: -54 QRSD: 87 T: -52 QT: 436 QTc: 471 Interpretive Statements Sinus rhythm Consider RVH or posterior infarct Probable left ventricular hypertrophy Inferior infarct, recent Anterolateral Q waves, probably due to LVH Lateral leads are also involved Compared to ECG 02/12/2020 08:22:27 Left ventricular hypertrophy now present Myocardial infarct finding still present Electronically Signed On 02-13-2020 11:41:43 CDT by Herber Archibald [email or web address] <ELECTRONICALLY SIGNED> By: Herber Archibald MD, [facility] 02/13/20 1141 7 7 Herber Archibald MD, [facility] /EPI
--- NOTE | 2020-02-13 14:41 | D ---
[address] [address] DISCHARGE SUMMARY Name: JACQUIE BAGLEY Room: [address] M.R.#: [id number] Admission: 02/11/20 Attend Phys: Herber Archibald MD, F Discharge: 02/13/20 Date of : 57 Report #: [id number] THIS REPORT FOR: //name// cc: Herber Jean Baptiste MD, David L. MD ~ THIS REPORT FOR: //name// CC: Herber Jean Baptiste Jarod Serrano DATE OF SERVICE: 02/13/2020 DISCHARGE DIAGNOSES: 1. Unstable angina. 2. Acute myocardial infarction type 4. 3. Hypertension. 4. History of hepatitis C. 5. Peripheral arterial disease. 6. Hyperlipidemia. 7. History of brain aneurysm. PROCEDURES: Left heart catheterization with placement of a bare metal stent in her right coronary artery. CONSULTANTS: None. HISTORY OF PRESENT ILLNESS: The patient is a 64-year-old white female who was brought to the outpatient department to undergo cardiac catheterization. The patient has no history of heart disease. She does have a previous history of chest pain, but actually had a nuclear stress test back in 06/2019 here at [facility] that showed an ejection fraction of 72%, that showed no evidence of ischemia. Recently, however, she has noticed occasional sharp pain in her left breast. It is not related to exertion or meals. There is no radiation of the pain. I saw her in Cardiology Clinic recommended she undergo cardiac catheterization. PAST MEDICAL HISTORY: Significant for previous right carotid endarterectomy. She has a history of PAD with previous fem-fem bypass and distal aortic stent by Dr. Serrano. She has a known brain aneurysm followed by Dr. Boy Groves. She has a history of hypertension, hyperlipidemia. CURRENT MEDICATIONS: Include lisinopril, Crestor, aspirin. ALLERGIES: She has no [place] [address] DISCHARGE SUMMARY Name: JACQUIE BAGLEY Room: [address]#: [id number] Admission: 02/11/20 Attend Phys: Herber Archibald MD, F Discharge: 02/13/20 Date of : 57 Report #: [id number] PHYSICAL EXAMINATION: GENERAL: Revealed a middle-aged female, appeared in no distress. CURRENT VITAL SIGNS: Blood pressure 130/80, pulse is 60. She is afebrile. CHEST: Clear to auscultation. CARDIAC: Regular rate and rhythm. ABDOMEN: Soft. EXTREMITIES: Had no edema. DIAGNOSTIC DATA: Her ECG showed a sinus rhythm, evidence of previous inferior infarction. LABORATORY WORK: She had sodium 138, potassium 4.2, BUN 15, creatinine 0.8. Her glucose was 105. Liver function studies were normal. Cholesterol 188, triglyceride 135, HDL 66, LDL 95. Her white blood cell count 7.6, hemoglobin 14.9. HOSPITAL COURSE: The patient was brought to the outpatient department. I performed cardiac catheterization from the right radial artery after she was admitted. She was noted to have normal left ventricular function with an ejection fraction of 65%. No significant disease in the LAD. The circumflex had a 40% stenosis. There was a large ramus branch, had an ostial 70% stenosis. The right coronary had a proximal 80% stenosis. The distal posterolateral branch had an 80% stenosis of a small vessel. The results were discussed with the patient. She is felt to have a significant stenosis in the proximal right coronary artery. Attempts at angioplasty and stenting were performed. She was given heparin and Aggrastat. The procedure was difficult because of lack of guide support as well as tortuosity. I performed balloon angioplasty of the mid right coronary artery, but was unable to place a stent despite the use of a wilma wire and a GuideLiner. It was decided to abandon further attempts at this time. However, she was noted to have a dissection of the ostium of the right coronary artery, most likely secondary to the guiding catheter. I then placed a single bare metal stent in the ostium of the right coronary artery. She was noted to have slow flow in the right coronary artery and the vessel appeared to be occluded after the acute margin. The patient did have some chest discomfort with minor ST-segment changes. It was decided to treat her medically. She required narcotics for pain relief. She was given Zofran for nausea. After the procedure, she had no significant arrhythmias. There was no hematoma in the right wrist. She was transferred to the ICU and watched overnight. Her chest pain gradually resolved. The following morning her ECG showed a sinus rhythm with evidence of previous inferior infarction, nonspecific ST-segment changes. Followup lab work after the procedure included creatinine 0.9. Her peak troponin was 60. Her hemoglobin 12.9. Prior to discharge, she was ambulating in the halls with cardiac rehabilitation and no further chest pain, shortness of breath, arrhythmias. At the time of discharge, she had a blood pressure of 120/70, pulse of 80, she was afebrile. She was discharged on the following medication. She was to continue her aspirin 81 mg a day. [place] [address] DISCHARGE SUMMARY Name: JACQUIE BAGLEY Room: [address] [place] [facility]#: [id number] Admission: 02/11/20 Attend Phys: Herber Archibald MD, F Discharge: 02/13/20 Date of : 57 Report #: [id number] lisinopril because of low blood pressure and because of the myocardial infarction, she was started on Toprol-XL 25 mg a day. She was given Effient 10 mg a day, which I would take for one year following placement of a drug-eluting stent. Her Crestor was increased to 40 mg a day and have to lower her LDL to less than 70. She has nitroglycerin to take as needed for chest pain. She was discharged to follow up with my nurse practitioner in 1 week. She has not returned to work for 1 week. She is felt to have a good prognosis from cardiac standpoint. The ramus branch did not appear to be readily amenable to stenting because of its ostial location from the left main artery. I recommend she enroll in cardiac rehabilitation. She is not to return to work for 1 week. She was to contact my office if she had recurrent chest pain or shortness of breath. She was discharged to return to care of Dr. Jean Baptiste for routine medical care. She will continue to see Dr. Serrano because of her previous carotid endarterectomy and peripheral vascular surgery and stenting. If her blood pressure continues to elevate, I would consider resuming lisinopril. Fortunately, she no longer smokes. She will continue to see Dr. Boy Groves for followup of her brain aneurysm. <ELECTRONICALLY SIGNED> By: Herber Archibadl MD, FACC 02/13/20 1441 1033 1100David Nayla Archibald MD, FACC /nt
[2020-02-19] MEDS ORDERED: HYDROCODON-ACE1 EAC7 PO (09:34)
[2020-02-20] MEDS ORDERED: EFFIENT10 MG PO (08:57)
[2020-02-20] MEDS ORDERED: NITROGLYCERIN0.3 M1 SUBQ (08:59)
== END 2020-02-13 11:20 | disposition home or self-care (01) | DRG 249 ==
LOC: M.CL 09:30 → M.ICU 14:36 → M.TBA-CV 14:36 → M.ICU 16:11 → M.2W 02-12 11:45
PROVIDERS: ADMIT Internal Medicine Cardiovascular Disease; ATTEND Internal Medicine Cardiovascular Disease
PROC: B2111ZZ Fluoroscopy of Multiple Coronary Arteries using Low Osmolar Contrast (ICD-10-PCS; principal; 2020-02-11)
PROC: B2151ZZ Fluoroscopy of Left Heart using Low Osmolar Contrast (ICD-10-PCS; principal; 2020-02-11)
PROC: 4A023N7 Measurement of Cardiac Sampling and Pressure, Left Heart, Percutaneous Approach (ICD-10-PCS; principal; 2020-02-11)
PROC: 02703DZ Dilation of Coronary Artery, One Artery with Intraluminal Device, Percutaneous Approach (ICD-10-PCS; principal; 2020-02-11)
DX: I21.4 Non-ST elevation (NSTEMI) myocardial infarction (principal); M31.9 Necrotizing vasculopathy, unspecified; I25.110 Atherosclerotic heart disease of native coronary artery with unstable angina pectoris; I10 Essential (primary) hypertension; I73.9 Peripheral vascular disease, unspecified; E78.5 Hyperlipidemia, unspecified; E78.00 Pure hypercholesterolemia, unspecified; B18.2 Chronic viral hepatitis C; F17.201 Nicotine dependence, unspecified, in remission; Z79.899 Other long term (current) drug therapy; Z82.49 Family history of ischemic heart disease and other diseases of the circulatory system

== ENCOUNTER → 2020-02-19 | Outpatient (CLI) | payer OTHER ==
[~2020-02-19] MED LIST changes: +ACETAMINOPHEN PO; +CALCIUM CARBON200 M1 PO; +CENTRUM SILVER1 EAC6 PO; +EFFIENT10 MG PO; +FISH OIL 1,0001 EAC9 PO; +MELATONIN10 M3 PO; +NITROGLYCERIN0.3 M1 SUBQ; +NORCO 5-325 TA1 EAC1 PO; +TOPROL XL25 MG PO; +VITAMIN D3250 MC1 PO
--- NOTE | 2020-02-21 15:59 | PAINCON ---
[address] [address] PAIN MANAGEMENT CONSULTATION Name: JACQUIE BAGLEY Room: [facility]#: [id number] Admission: 02/19/20 Attend Phys: Benito Kennedy MD Discharge: Date of : 57 Report #: [id number] THIS REPORT FOR: //name// cc: Herber Jean Baptiste MD, David L. MD ~ THIS REPORT FOR: //name// CC: Herber Kennedy DATE OF SERVICE: 02/19/2020 CHIEF COMPLAINT: Here for medications. "I had a heart catheter and had a small clot." HISTORY: The patient is a 65-year-old female who has been followed in the pain clinic because of chronic pain. As you recall, she has pain and discomfort in the lower back as well as down her legs. She suffers from ischemia. She notes that when she sits for a prolonged period of time her pain becomes more problematic. She has had some vascular surgery in the groin area. She had been experiencing some pain and discomfort in the left chest area. Evaluations were inconclusive. The patient underwent a cardiac catheterization. She was found to have a blockage in the artery in the posterior portion of her heart. She states that during the procedure, she developed a clot. She was hospitalized for about 3 days. The clot resolved. She has a stent in place. States that things are going better. She has less pain and discomfort. She rates her pain today as a 3/10. Overall, it is pretty good. She has had no problems with her medications. She has returned to work. She returns today for renewal of her medications. ALLERGIES: No known drug allergies. CURRENT MEDICATIONS: Rosuvastatin 20 mg, lisinopril 20 mg, hydrocodone 5/325 one p.o. t.i.d., aspirin 81 mg, vitamin C, D, calcium, fish oil, blood thinning medication, metoprolol XL 25 mg, nitro place. PAIN CLINIC ASSESSMENT/PQRS: 1. The patient is not being treated for osteoarthritis or rheumatoid arthritis. 2. Height 5 feet 1 inch, weight 106 pounds, BMI is 20.6. 3. Vital signs: Blood pressure 126/76, heart rate 65, respiratory rate 16, room air saturation is 98%. Temperature 98.8. 4. Pain intensity 4/10. 5. Fall history: The patient has not fallen in the last 3 months. 6. Blood thinner. The patient is on a blood thinning medication is status post stent placement. 7. Hypertension. The patient is [place] [address] PAIN MANAGEMENT CONSULTATION Name: JACQUIE BAGLEY Room: [facility]#: [id number] Admission: 02/19/20 Attend Phys: Benito Kennedy MD Discharge: Date of : 57 Report #: [id number] 8. Opioids greater than 6 weeks. The patient received medication from one source the pain clinic. 9. Risk assessment tool, low for opioid use. 10. Functional assessment tool . 11. Recreational drug use. The patient denies. 12. Tobacco: The patient has not smoked in 10 years. 13. Alcohol. The patient denies use of alcoholic beverages. PHYSICAL EXAMINATION: GENERAL: The patient is a well-developed, well-nourished white female. Appears her stated age. She is alert and oriented x 3. Her affect is appropriate. Speech is fluent. HEENT: Normocephalic, atraumatic. Extraocular eye muscles intact. Sclerae nonicteric. Mucous membranes are moist. NECK: Without adenopathy or JVD. The patient is wearing a mask. HEART: Regular rate. ABDOMEN: Nontender. MUSCULOSKELETAL: Upper extremity muscle strength judged to be 5/5 for the major muscle groups in the upper extremity. The patient has some pain and discomfort, which can be problematic in the lower extremity. She has been relaxing and has not set for too long. Overall, her pain is a 3/10. She feels might worsen as the day goes on because of prolonged sitting at work. The patient without significant scoliosis, kyphosis or lordosis. IMPRESSION: 1. Chronic pain in the lower extremities involving the legs and anterior thigh area, status post peripheral vascular surgeries. 2. Hypertension. The patient has a history of elevated blood pressures 200-180, systolic. 3. Stent placement posterior artery of her heart. 4. The patient developed a blood clot, was hospitalized for 3 days now it is resolved. 5. Hypercholesterolemia. 6. Headaches in the occipital area. RECOMMENDATIONS: We discussed treatment options with the patient. At this juncture, we will continue with her medications. She finds that the medications are helpful. She does not have any complications. We will continue with hydrocodone 5 mg 1 p.o. t.i.d. The patient is feeling better now that she has had the stent placed. Hopefully, she will continue to improve. She will call us if she has any concerns. A script for her medications of 5 mg 1 p.o. t.i.d. have been provided for the next 2 [place] [address] PAIN MANAGEMENT CONSULTATION Name: JACQUIE BAGLEY Room: [facility]#: [id number] Admission: 02/19/20 Attend Phys: Benito Kennedy MD Discharge: Date of : 57 Report #: [id number] We would like to thank you for letting us to participate in her care. We hope she continues to improve. <ELECTRONICALLY SIGNED> By: Benito Kennedy MD 02/21/20 1559 0948 [id number]. Jeffrey Kennedy MD /[facility]
== END ==
LOC: M.PC 04:10
PROVIDERS: ATTEND Anesthesiology Pain Medicine
DX: I10 Essential (primary) hypertension (principal); E78.00 Pure hypercholesterolemia, unspecified; I25.2 Old myocardial infarction; Z79.899 Other long term (current) drug therapy

== ENCOUNTER → 2020-04-22 | Outpatient (CLI) | payer OTHER ==
[~2020-04-22] MED LIST changes: +LISINOPRIL PO; +PLAVIX 75 MG TA75 MG PO
--- NOTE | 2020-04-24 10:21 | PAINCON ---
[address] [address] PAIN MANAGEMENT CONSULTATION Name: JACQUIE BGALEY Room: [facility]#: [id number] Admission: 04/22/20 Attend Phys: Benito Kennedy MD Discharge: Date of : 57 Report #: [id number] THIS REPORT FOR: //name// cc: Kylah Cruz MD, Lin W. MD ~ THIS REPORT FOR: //name// CC: Kylah Kennedy DATE OF SERVICE: 04/22/2020 CHIEF COMPLAINT: Here for medication and things are going pretty well. HISTORY: The patient is a 65-year-old female. She has been followed in the pain clinic because of chronic pain in the lower extremities. She suffers from ischemia. She recently was treated for heart ischemia. She states that she had a stent placed. Overall, things have been going reasonably well. She rates her pain today as a 2/10. Pain involves primarily her legs. Prolonged walking can worsen her pain and discomfort. She feels that her pain is about 80%-90% improved with her current medical regimen. Her cardiac catheterization showed an 80% blockage in her coronary artery. After the procedure she noticed she developed two clots. She went for a brief stay in the ICU. Overall, things are going reasonably well. She is taking a blood thinning medication Effient. ALLERGIES: No known drug allergies. CURRENT MEDICATIONS: Rosuvastatin 20 mg, lisinopril 20 mg, hydrocodone 5/325 one p.o. t.i.d., aspirin 81 mg, vitamin C, vitamin D, calcium, fish oil, blood thinner medication Effient, metoprolol XL 25 mg, Nitro paste. PAIN CLINIC ASSESSMENT AND PQRS: 1. The patient is not being treated for osteoarthritis or rheumatoid arthritis. 2. Height 5 feet 1 inch, weight 107 pounds, BMI is 20. 3. Vital Signs: Blood pressure is 129/79, heart rate 60, respiratory rate 16, room air saturation 98%, temperature 97.6. 4. Pain intensity 2-3/10. 5. Fall history: The patient has not fallen in the last 3 months. 6. Blood thinner. The patient is not on a blood thinning medication. 7. Opioids. The patient receives medication from the pain clinic. 8. Tobacco: The patient has not smoked in 10 years. 9. Alcohol. The patient occasionally drinks alcoholic beverages. PHYSICAL EXAMINATION: GENERAL: The patient is a well-developed, well-nourished white female. Appears her stated age. She is alert and oriented x 3. [place] [address] PAIN MANAGEMENT CONSULTATION Name: KEVYNJACQUIE R Room: [facility]#: [id number] Admission: 04/22/20 Attend Phys: Benito Kennedy MD Discharge: Date of : 57 Report #: [id number] Speech is fluent. HEENT: Normocephalic, atraumatic. Extraocular eye muscles intact. Sclerae nonicteric. Mucous membranes are moist. The patient is wearing a facial covering. HEART: Regular rate. ABDOMEN: Nontender. EXTREMITIES: Upper extremity muscle strength judged to be 5-/5 for the major muscle groups in the upper extremity. Lower extremity, the patient notes less discomfort. She has less pain and discomfort when she sits, if she is not sitting for a prolonged period of time. The patient without significant scoliosis, kyphosis or lordosis. IMPRESSION: 1. Chronic lower extremity pain involving the anterior thigh area, status post peripheral vascular surgeries. 2. Status post cardiac stent placement for an 80% blockage in a coronary artery. 3. Hypertension. The patient has history of elevated blood pressures 200/180 systolic. 4. Hypercholesterolemia. 5. Headaches in the occipital area. RECOMMENDATIONS: We discussed treatment options with the patient. At this juncture, she feels her medications are working reasonably well. We will continue with the use of Palmer 5 mg 1 p.o. b.i.d. She will also continue with her blood thinning medications. She noticed some increase and easier bruisability. She does not have any problems with her medications. She finds that they continue to be helpful. She is aware that opioid medications can become less effective as time goes on because of development of tolerance. She has taken her medication as prescribed. She is aware that opioids have caused some patients to overdose. She is on a very low dose of medication and does not appear to be having any problems with her medications. We would like to thank you for letting us participate in her care. We hope she continues to improve. <ELECTRONICALLY SIGNED> By: Benito Kennedy MD 04/24/20 1021 1029 Fabby Kennedy MD /[facility]
== END ==
LOC: M.PC 09:20
PROVIDERS: ATTEND Anesthesiology Pain Medicine
DX: M79.604 Pain in right leg (principal); M79.605 Pain in left leg; G89.29 Other chronic pain; I10 Essential (primary) hypertension; E78.00 Pure hypercholesterolemia, unspecified; Z86.79 Personal history of other diseases of the circulatory system; Z95.5 Presence of coronary angioplasty implant and graft

== ENCOUNTER → 2020-06-17 | Outpatient (CLI) | payer OTHER ==
--- NOTE | 2020-06-17 14:36 | PAINCON ---
[address] [address] PAIN MANAGEMENT CONSULTATION Name: JACQUIE BAGLEY Terell Room: [facility]#: [id number] Admission: 06/17/20 Attend Phys: Benito Kennedy MD Discharge: Date of : 57 Report #: [id number] THIS REPORT FOR: //name// cc: Kylah Cruz MD, Lin W. MD ~ CC: Kylah Kennedy DATE OF SERVICE: 06/17/2020 CHIEF COMPLAINT: I had jaw surgery and skin grafting. HISTORY: The patient is a 65-year-old female who has been followed in the pain clinic because of lower extremity pain. She suffers from ischemic circulation in her lower extremities. She recently underwent bone grafting in her jaws. She also had skin grafting. Since that time, she has noticed an increase in her pain. She has noted some increase bruising in her neck. This is because she did not stop her Plavix. Overall, things are going reasonably well. She has had quite a bit of pain. She rates her pain in her face as a 10/10. Rates the pain in her lower extremities as a 2/10. She feels that her medications continue to be helpful. She would like to have them renewed. She has been aware of the COVID-19 pandemic. She is somewhat concerned about its followup check. ALLERGIES: No known drug allergies. CURRENT MEDICATIONS: Rosuvastatin 20 mg, lisinopril 20 mg, hydrocodone 5/325 one p.o. t.i.d., aspirin 81 mg, vitamin C, vitamin D, calcium, fish oil, blood thinner medication, Plavix, metoprolol XL 25 mg, Nitro paste PAIN CLINIC ASSESSMENT AND PQRS: 1. The patient is not being treated for osteoarthritis or rheumatoid arthritis. 2. Height 5 feet 1 inch, weight 107 pounds, BMI is 20. 3. Vital Signs: Blood pressure 134/81, heart rate 73, respiratory rate 16, room air saturation 97%, temperature 98.1. 4. Pain intensity is 10/10 for the neck and 2/10 for the legs. 5. Fall history: The patient has not fallen in the last 3 months. 6. Blood thinner. The patient is not on a blood thinning medication. 7. Opioid medications. The patient received medication from one source the pain clinic. 8. Risk assessment tool, low for opioid use. 9. Tobacco: The patient denies use of tobacco, has not smoked in the last 10 years. 10. Alcohol: The patient occasionally drinks alcoholic beverages. PHYSICAL EXAMINATION: [place] [address] PAIN MANAGEMENT CONSULTATION Name: JACQUIE BAGLEY Terell Room: [facility]#: [id number] Admission: 06/17/20 Attend Phys: Benito Kennedy MD Discharge: Date of : 57 Report #: [id number] GENERAL: The patient is a well-developed, well-nourished white female. Appears her stated age. She is alert and oriented x 3. Her affect is appropriate. Speech is fluent. HEENT: Normocephalic, atraumatic. Extraocular eye muscles intact. Sclerae nonicteric. Mucous membranes moist. The patient has facial covering in place. The patient has a significant amount of bruising in the area of her left and right lower neck area. HEART: Regular rate. ABDOMEN: Nontender. EXTREMITIES: Upper extremity muscle strength judged to be 5-/5 for the major muscle groups in the upper extremity. The patient has some discomfort in the lower extremities associated with the ischemia. She is not having problems with scoliosis, kyphosis or lordosis. Prolonged sitting causes increased pain. IMPRESSION: 1. Chronic lower extremity pain involving the anterior thighs, status post peripheral vascular surgeries. 2. Recent surgery with bone grafting to the jaw and skin grafting. 3. Status post cardiac stent placement for an 80% blockage of coronary artery. 4. Hypertension. The patient has a history of elevated blood pressures 200/180 systolic. 5. Hypercholesterolemia. 6. Headaches in the occipital area. RECOMMENDATIONS: We discussed treatment options with the patient. The patient at this juncture, feels that her medications are helpful. Because of the surgery, she has noted increase in pain and discomfort. We will increase the patient's Roxicodone x 15 tablets to 105 tablets per month for the next 2 months that she undergoes her procedures. Hopefully, she will find these are helpful. She is unable to take nonsteroidal anti-inflammatory medications because of her Plavix medication. She is sheltering at home as much as possible because of the COVID-19. We would like to thank you for letting us participate in her care. We hope she continues to improve. <ELECTRONICALLY SIGNED> By: Benito Kennedy MD 06/17/20 1436 0940 [id number]. Jeffrey Kennedy MD /[facility]
== END ==
LOC: M.PC 08:50
PROVIDERS: ATTEND Anesthesiology Pain Medicine
DX: M79.604 Pain in right leg (principal); M79.605 Pain in left leg; G89.29 Other chronic pain; I10 Essential (primary) hypertension; E78.00 Pure hypercholesterolemia, unspecified; R51.9 Headache, unspecified; R03.0 Elevated blood-pressure reading, without diagnosis of hypertension; Z48.814 Encounter for surgical aftercare following surgery on the teeth or oral cavity; Z95.5 Presence of coronary angioplasty implant and graft

== ENCOUNTER → 2020-09-11 | Outpatient (CLI) | payer OTHER | END | disposition home or self-care (01) | LOC: M.PC 09-09 09:20 | PROVIDERS: ATTEND Anesthesiology Pain Medicine | DX: M54.81 Occipital neuralgia (principal); M79.18 Myalgia, other site; M79.605 Pain in left leg; M79.604 Pain in right leg; G89.29 Other chronic pain; I73.9 Peripheral vascular disease, unspecified; I10 Essential (primary) hypertension; I25.2 Old myocardial infarction; E78.00 Pure hypercholesterolemia, unspecified; Z98.890 Other specified postprocedural states; Z79.899 Other long term (current) drug therapy; Z95.5 Presence of coronary angioplasty implant and graft ==

== ENCOUNTER → 2020-11-06 | Outpatient (CLI) | payer OTHER | LOC: M.PC 08:46 | PROVIDERS: ATTEND Anesthesiology Pain Medicine | DX: I10 Essential (primary) hypertension (principal); E78.00 Pure hypercholesterolemia, unspecified; I67.1 Cerebral aneurysm, nonruptured; I73.9 Peripheral vascular disease, unspecified; Z95.2 Presence of prosthetic heart valve ==

== ENCOUNTER → 2021-01-15 | Outpatient (CLI) | payer OTHER | LOC: M.PC 08:55 | DX: G89.29 Other chronic pain (principal); R51.9 Headache, unspecified; M79.606 Pain in leg, unspecified; I10 Essential (primary) hypertension; E78.00 Pure hypercholesterolemia, unspecified; Z95.818 Presence of other cardiac implants and grafts; Z95.1 Presence of aortocoronary bypass graft ==

== ENCOUNTER → 2021-03-19 | Outpatient (CLI) | payer OTHER, MEDICARE | LOC: M.PC 03-12 09:00 | PROVIDERS: ATTEND Anesthesiology Pain Medicine | DX: R51.9 Headache, unspecified (principal); M79.661 Pain in right lower leg; M79.662 Pain in left lower leg; I10 Essential (primary) hypertension; E78.00 Pure hypercholesterolemia, unspecified; Z79.899 Other long term (current) drug therapy; Z79.891 Long term (current) use of opiate analgesic ==

== ENCOUNTER → 2021-05-14 | Outpatient (CLI) | payer MEDICARE, OTHER | LOC: M.PC 08:52 | PROVIDERS: ATTEND Anesthesiology Pain Medicine | DX: M54.81 Occipital neuralgia (principal); M79.669 Pain in unspecified lower leg; I73.9 Peripheral vascular disease, unspecified; E78.00 Pure hypercholesterolemia, unspecified; I10 Essential (primary) hypertension; Z95.818 Presence of other cardiac implants and grafts; Z88.8 Allergy status to other drugs, medicaments and biological substances; Z79.82 Long term (current) use of aspirin; Z79.899 Other long term (current) drug therapy ==

== ENCOUNTER → 2021-07-16 | Outpatient (CLI) | payer MEDICARE, OTHER | LOC: M.PC 07-07 09:00 | PROVIDERS: ATTEND Anesthesiology Pain Medicine | DX: G89.29 Other chronic pain (principal); R51.9 Headache, unspecified; M79.669 Pain in unspecified lower leg; I73.9 Peripheral vascular disease, unspecified; I10 Essential (primary) hypertension; E78.00 Pure hypercholesterolemia, unspecified; Z79.82 Long term (current) use of aspirin; Z79.899 Other long term (current) drug therapy ==

== ENCOUNTER → 2021-09-10 | Outpatient (CLI) | payer MEDICARE, OTHER | LOC: M.PC 08:20 | PROVIDERS: ATTEND Anesthesiology Pain Medicine | DX: R51.9 Headache, unspecified (principal); M79.669 Pain in unspecified lower leg; I10 Essential (primary) hypertension; E78.00 Pure hypercholesterolemia, unspecified; Z95.5 Presence of coronary angioplasty implant and graft; Z79.899 Other long term (current) drug therapy ==